=== PATIENT | female | born 1965 | race Caucasian/White ===

== ENCOUNTER 2018-09-03 16:42 | Inpatient (IN) ==
[2018-09-03] MEDS ORDERED: Clindamycin 900 mg/NS Premix 900 MG/50 ML PIGGYBACK IV.SIG ONE (17:48)
--- NOTE | 2018-09-03 17:52 | ED ---
HPI General Chief complaint: Skin/Abscess/Foreign Body Stated complaint: LEFT LEG WOUND, TREATED @MAIN Time Seen by Provider: 09/03/18 17:48 Source: patient Mode of arrival: ambulatory Limitations: no limitations History of Present Illness HPI narrative: 52-year-old female patient with history of chronic left leg wound that gets better and worse intermittently was seen 3 weeks ago and had been treated with p.o. antibiotics course, states that it had gotten better intermittently but she states it is getting worse again and the wound is getting larger again and she is worried that the wound infection is getting worse again. She states that the pain is going up her left leg. She denies any fevers, but has been nauseous, not feeling well, losing weight. She denies any diarrhea, vomiting, or other issues. Related Data Home Medications Medication Instructions Recorded Confirmed No Known Home Medications 09/03/18 09/03/18 Allergies Allergy/AdvReac Type Severity Reaction Status Date / Time No Known Allergies Allergy Verified 09/03/18 16:56 Review of Systems ROS: all other systems reviewed are negative PMFSH History History Provided By: Patient Medical History Medical History Wounds, multiple open, lower extremity (Acute) Surgical History Surgical History History of biopsy (Acute) History of eye surgery (Acute) History of removal of cyst (Acute) Social History Social History Substance History: No History of Abuse Second Hand Smoke Exposure: No Smoking Status: Never smoker How Often Do You Have a Drink Containing Alcohol: Monthly or less Recent Travel in [facility] within the Last 8 Weeks: No Recent Out of Country Travel within the Last 8 Weeks: No Exam Narrative Exam Narrative: GENERAL: Well-developed middle-age female patient currently in mild distress. Awake and oriented x3. SKIN: Focused skin assessment warm/dry. There is a large left lower leg wound that extends about 12 x 16 cm with large amount of wound eschar that is light colored. Foul-smelling, surrounded by erythema. HEAD: Atraumatic. Normocephalic. EYES: Pupils equal and round. No scleral icterus. No injection or drainage. ENT: No nasal bleeding or discharge. Mucous membranes pink and moist. NECK: Trachea midline. No JVD. CARDIOVASCULAR: Regular rate and rhythm. No murmur appreciated. RESPIRATORY: No accessory muscle use. Clear to auscultation. Breath sounds equal bilaterally. GASTROINTESTINAL: Abdomen soft, non-tender, nondistended. Hepatic and splenic margins not palpable. MUSCULOSKELETAL: No obvious deformities. No clubbing. No cyanosis. No edema. NEUROLOGICAL: Awake and alert. No obvious cranial nerve deficits. Motor grossly within normal limits. Normal speech. PSYCHIATRIC: Appropriate mood and affect; insight and judgment normal. Course Initial Documented Vital Signs Temperature 99.3 F 09/03/18 16:53 Pulse Rate 88 09/03/18 16:53 Respiratory Rate 16 09/03/18 16:53 Blood Pressure 143/69 H 09/03/18 16:53 Pulse Oximetry 100 09/03/18 16:53 Last Documented Vital Signs Temperature 99.3 F 09/03/18 16:53 Pulse Rate 89 09/03/18 17:59 Respiratory Rate 14 09/03/18 17:59 Blood Pressure 139/80 09/03/18 17:59 Pulse Oximetry 100 09/03/18 17:59 Medical Decision Making MDM Narrative Medical decision making narrative: The wound appears to be getting worse despite p.o. antibiotics as an outpatient. There is a lot of wound breakdown and it appears that she probably needs some debridement of this wound. IV antibiotics were initiated after blood cultures are drawn. Her lab work does show some leukocytosis as well. At this point, my plan would be to admit the patient for further treatment. Case is discussed with Dr. Cuevas for admission. Medical Screen Exam Complete: Yes Emergency Medical Condition: Yes Differential Diagnosis Differential Diagnosis: Chronic leg wound versus acute worsening of wound infection versus cellulitis versus sepsis versus osteomyelitis Lab Data Lab results reviewed: Yes I reviewed the patient's lab results. Result diagrams: 09/03/18 18:05 09/03/18 18:05 Lab Results 09/03/18 09/03/18 Range/Units 18:05 18:05 CBC w Diff Auto diff final WBC 11.2 H (4.0-11.0) th/mm3 RBC 3.84 L (4.00-5.30) mil/mm3 Hgb 12.2 (11.6-15.3) gm/dL Hct 36.6 (35.0-46.0) % MCV 95.3 (80.0-100.0) fL MCH 31.7 (27.0-34.0) pg MCHC 33.3 (32.0-36.0) % RDW 14.4 (11.6-17.2) % Plt Count 455 H (150-450) th/mm3 MPV 6.3 L (7.0-11.0) fL Neut % (Auto) 83.0 H (16.0-70.0) % Lymph % (Auto) 9.1 (9.0-44.0) % [place] % (Auto) 6.2 (0.0-8.0) % Eos % (Auto) 1.3 (0.0-4.0) % Baso % (Auto) 0.4 (0.0-2.0) % Neut # (Auto) 9.4 H (1.8-7.7) th/mm3 Lymph # (Auto) 1.0 (1.0-4.8) th/mm3 [place] # (Auto) 0.7 (0.0-0.9) th/mm3 Eos # (Auto) 0.1 (0.0-0.4) th/mm3 Baso # (Auto) 0.0 (0.0-0.2) th/mm3 WBC Differential . Differential Comment . Sodium 144 (136-145) meq/L Potassium 3.3 L (3.5-5.1) meq/L Chloride 108 H (98-107) meq/L Carbon Dioxide 26.7 (21.0-32.0) meq/L Anion Gap 9 (5-15) meq/L BUN 21 H (7-18) mg/dL Creatinine 0.73 (0.50-1.00) mg/dL Estimated GFR 83 L (>89) mL/min Random Glucose 142 H (74-106) mg/dL Calcium 8.7 (8.5-10.1) mg/dL Discharge Plan Discharge Disposition Patient Disposition: 30 Still Patient Discharge Condition Condition: Stable Discharge Details Anticipated Discharge Date: 09/03/18 Diagnosis: Wound infection Physicians Team ED Provider: Myles Lema Primary Care Provider: Primary Care Irene Rabago Rxs /Orders / Referrals /Forms Prescriptions: No Action No Known Home Medications RF: 0 Discharge Interventions Interventions: Vital Signs Last Done: 09/03/18 17:59 Status ED Status: With Doctor
[2018-09-03 18:27] LABS: Baso % (Auto) 0.4 % (0.0-2.0); Eos # (Auto) 0.1 th/mm3 (0.0-0.4); Eos % (Auto) 1.3 % (0.0-4.0); Hematocrit 36.6 % (35.0-46.0); Hemoglobin 12.2 gm/dL (11.6-15.3); Lymph % (Auto) 9.1 % (9.0-44.0); Mean Corpuscular HGB Conc 33.3 % (32.0-36.0); Mean Corpuscular Hemoglobin 31.7 pg (27.0-34.0); Mean Corpuscular Volume 95.3 fL (80.0-100.0); Mean Platelet Volume 6.3 fL (7.0-11.0); Mono # (Auto) 0.7 th/mm3 (0.0-0.9); Mono % (Auto) 6.2 % (0.0-8.0); Neut # (Auto) 9.4 th/mm3 (1.8-7.7); Platelet Count 455 th/mm3 (150-450); Red Blood Count 3.84 mil/mm3 (4.00-5.30); Red Cell Distribution Width 14.4 % (11.6-17.2); White Blood Count 11.2 th/mm3 (4.0-11.0)
[2018-09-03 18:38] LABS: Potassium 3.3 meq/L (3.5-5.1)
[2018-09-03 18:41] LABS: Calcium 8.7 mg/dL (8.5-10.1)
[2018-09-03 18:42] LABS: Carbon Dioxide 26.7 meq/L (21.0-32.0)
[2018-09-03] MEDS ORDERED: Bisacodyl 10 MG Supp RECTAL PRN (18:47)
[2018-09-03] MEDS ORDERED: Acetaminophen 325 MG Tablet PO PRN (18:47)
--- NOTE | 2018-09-03 19:04 | XR ---
EXAM DATE: 09/03/2018 6:59 PM EST AGE/SEX: 52 years / Female INDICATIONS: Patient has open sore to lower left tib/fib anteriorly and medially. CLINICAL DATA: This is the patient's initial encounter. Patient reports that signs and symptoms have been present for 3 weeks and indicates a pain score of 6/10. MEDICAL/SURGICAL HISTORY: None. None. COMPARISON: [facility] – [place], MR LOWER LEG LEFT W & W/O CONTRAST, 08/14/2018. . FINDINGS: There is soft tissue swelling and ulceration along the medial aspect of the lower leg corresponding t o the known open sore. The bone density is diminished. No fracture or dislocation. No underlying bone abnormality. CONCLUSION: Soft tissue ulceration and swelling as above. Electronically signed by: Ceferino Raya MD 09/03/2018 7:03 PM EST
[2018-09-03] MEDS: Ampicillin/Sulbactam Inj 3 GM in Sodium Chloride 0.9% Inj 100 ML IV.SIG SCH (19:24)
[2018-09-03] MEDS: Heparin - SQ 10,000 UNITS/ML Vial SQ SCH (19:24)
[2018-09-03] MEDS ORDERED: Ketorolac Inj 30 MG/ML (IVP) Vial IV.PUSH ONE (22:33)
[2018-09-04] MEDS: Ampicillin/Sulbactam Inj 3 GM in Sodium Chloride 0.9% Inj 100 ML IV.SIG SCH ×4 (02:32→21:57)
[2018-09-04] MEDS: Ketorolac Inj 30 MG/ML (IVP) Vial IV.PUSH PRN ×4 (04:56→22:49)
[2018-09-04] MEDS: Heparin - SQ 10,000 UNITS/ML Vial SQ SCH ×2 (07:56→21:57)
--- NOTE | 2018-09-04 08:02 | P.HPIM ---
History of Present Illness Primary Care Physician: No Primary Care Physician Chief Complaint: Right leg wound History of Present Illness: 52-year-old white female with a history of right leg wound which has worsened over the past 5 weeks. She was seen in the emergency room on August 14 and was given prescription for clindamycin which she stated she completed 5 days ago. While she was on this antibiotics, she noted the drainage has somewhat improved however since she has been off of the antibiotics she observed worsening of her right leg wound and increased drainage. She denies any fevers or chills. She denies any previous trauma to the area. She describes the drainage as yellowish in nature and states that it has been more malodorous recently. She denies any swelling of the lower legs. She denies any other associated symptoms. Diagnosis (1) Wound infection: Inpatient Certification Inpatient Certification: I certify that the inpatient services were ordered in accordance with Medicare regulations governing the order. This includes certification that hospital inpatient services are reasonable and necessary and in the case of services not specified as inpatient-only under 42 CFR 419.22(n), that they are appropriately provided as inpatient services in accordance to with the 2-midnight benchmark under 43 CFR 412.3(e) Estimated Total Length of Stay (Days): 3 Plans for Post Hospital Care: Home Review of Systems ROS: all other systems reviewed are negative PMFSH Medical History Medical History Wounds, multiple open, lower extremity (Acute) Surgical History Surgical History History of biopsy (Acute) History of eye surgery (Acute) History of removal of cyst (Acute) Family History Family History Mother Brain cancer Father Diabetes Social History Social History Substance History: No History of Abuse Second Hand Smoke Exposure: No Smoking Status: Never smoker How Often Do You Have a Drink Containing Alcohol: Never Recent Travel in [place] within the Last 8 Weeks: No Recent Out of Country Travel within the Last 8 Weeks: No Immunization History Tetanus Immunization: <5 Years Hx Influenza Vaccine This Season: No Medications and Allergies Allergies Allergy/AdvReac Type Severity Reaction Status Date / Time No Known Allergies Allergy Verified 09/03/18 16:56 Home Medications Medication Instructions Recorded Confirmed Type No Known Home Medications 09/03/18 09/03/18 History Active Medications: Active Medications Acetaminophen (Tylenol) 650 mg PO Q4H PRN PRN Reason: Headache, fever, pain 1-4 Last Admin: 09/03/18 20:09 Dose: 650 mg Al Hydroxide/Mg Hydroxide (Milk Of Magnesia Liq) 30 ml PO Q12H PRN PRN Reason: Mild Constipation Bisacodyl (Dulcolax Supp) 10 mg RECTAL DAILY PRN PRN Reason: SEVERE CONSITIPATION Heparin Sodium (Porcine) (Heparin Inj) 5,000 units SQ Q12H [facility] Last Admin: 09/03/18 19:24 Dose: 5,000 units Ampicillin Sodium/Sulbactam (Sodium 3 gm/ Sodium Chloride) 100 mls @ 200 mls/ hr IV.SIG Q6H [facility] Last Infusion: 09/04/18 03:05 Dose: Infused Ketorolac Tromethamine (Toradol Inj) 15 mg IV.PUSH Q6H PRN PRN Reason: pain 1 to 10 Stop: 09/09/18 01:44 Last Admin: 09/04/18 04:56 Dose: 15 mg Lactulose (Lactulose Liq) 30 ml PO DAILY PRN PRN Reason: SEVERE CONSITIPATION Ondansetron HCl (Zofran Inj) 4 mg IV.PUSH Q6H PRN PRN Reason: NAUSEA OR VOMITING Sennosides (Senokot) 17.2 mg PO Q12H PRN PRN Reason: Moderate Constipation Physical Exam Vital signs: Last Vital Signs Temp 96.5 F L 09/04/18 00:00 Pulse 89 09/04/18 00:00 Resp 18 09/04/18 00:00 BP 142/80 H 09/04/18 00:00 Pulse Ox 97 09/04/18 00:00 Intake & Output 09/02/18 09/03/18 09/04/18 09/05/18 06:59 06:59 06:59 06:59 Intake Total 550 / 550 Output Total 450 / 450 Balance 100 / 100 Weight 73.1 kg Narrative: GENERAL: Well-nourished pleasant female no acute distress SKIN: Venous stasis dermatitis changes bilateral lower extremity, right lower distal extremity showed a 10 cm x 11 cm excoriated wound with necrotic black tissue in the middle of the wound with surrounding area of yellowish fibrinous tissue, HEAD: Atraumatic. Normocephalic. EYES: Pupils equal and round. No scleral icterus. No injection or drainage. ENT: No nasal bleeding or discharge. Mucous membranes pink and moist. NECK: Trachea midline. No JVD. CARDIOVASCULAR: Regular rate and rhythm. RESPIRATORY: No accessory muscle use. Clear to auscultation. Breath sounds equal bilaterally. GASTROINTESTINAL: Abdomen soft, non-tender, nondistended. Hepatic and splenic margins not palpable. Normoactive bowel sounds MUSCULOSKELETAL: Extremities without clubbing, cyanosis, trace edema bilateral lower extremities NEUROLOGICAL: Awake and alert. No obvious cranial nerve deficits. Motor grossly within normal limits. Five out of 5 muscle strength in the arms and legs. Normal speech. PSYCHIATRIC: Appropriate mood and affect; insight and judgment normal. Assessment and Plan (1) Wound infection: Code(s): T14.8XXA - Other injury of unspecified body region, initial encounter; L08.9 - Local infection of the skin and subcutaneous tissue, unspecified Status: Acute Plan 52-year-old white female presents to the emergency room with worsening right lower leg wound over the past 5 weeks with failed outpatient antibiotic treatment Infected right lower leg wound -previous cultures done in the emergency room on August 14 showed Pseudomonas and Acinetobacterpatient has been placed on IV Unasyn overnight. Will add Levaquin to the regimen and follow-up with wound cultures and blood cultures. Santyl will be ordered for debridement with local wound care. Podiatry consultation will be placed for further evaluation for debridement this wound continue pain control with Tylenol and Toradol for breakthrough pain. Leukocytosis due to infectionwill monitor. DVT prophylaxisheparin H&P: Quality VTE Deep Vein Thrombosis/Pulmonary Embolism Present on Admission: No
[2018-09-04] MEDS: levoFLOXacin 500 MG Tablet PO SCH (11:54)
[2018-09-04] MEDS: Collagenase Oint 30 GM Tube TOPICAL SCH (14:20)
[2018-09-05] MEDS: Ampicillin/Sulbactam Inj 3 GM in Sodium Chloride 0.9% Inj 100 ML IV.SIG SCH ×4 (03:13→22:10)
[2018-09-05] MEDS: Ketorolac Inj 30 MG/ML (IVP) Vial IV.PUSH PRN ×2 (05:47→15:02)
[2018-09-05 06:21] LABS: Chloride 107 meq/L (98-107); Potassium 3.7 meq/L (3.5-5.1); Sodium 144 meq/L (136-145)
[2018-09-05 06:25] LABS: Calcium 8.1 mg/dL (8.5-10.1)
[2018-09-05 06:26] LABS: Anion Gap 7 meq/L (5-15); Blood Urea Nitrogen 15 mg/dL (7-18); Carbon Dioxide 29.9 meq/L (21.0-32.0); Glucose,Random 109 mg/dL (74-106)
[2018-09-05 06:29] LABS: Glomerular Filtration Rate Greater Than 89 mL/min (>89)
[2018-09-05 06:36] LABS: Baso % (Auto) 0.4 % (0.0-2.0); Eos # (Auto) 0.2 th/mm3 (0.0-0.4); Eos % (Auto) 3.4 % (0.0-4.0); Hematocrit 28.3 % (35.0-46.0); Lymph # (Auto) 1.1 th/mm3 (1.0-4.8); Lymph % (Auto) 18.8 % (9.0-44.0); Mean Corpuscular HGB Conc 35.2 % (32.0-36.0); Mean Corpuscular Hemoglobin 33.1 pg (27.0-34.0); Mean Corpuscular Volume 93.9 fL (80.0-100.0); Mono # (Auto) 0.7 th/mm3 (0.0-0.9); Neut % (Auto) 66.4 % (16.0-70.0); Red Blood Count 3.02 mil/mm3 (4.00-5.30); Red Cell Distribution Width 15.3 % (11.6-17.2)
[2018-09-05 06:38] LABS: Platelet Count 268 th/mm3 (150-450)
--- NOTE | 2018-09-05 08:49 | P.CONPOD ---
History of Present Illness Service: podiatry Consult date: 09/05/18 Reason for Consult: right leg wound Primary Care Provider: No Primary Care Physician Chief Complaint: Right leg wound History of Present Illness: Patient has history of bilateral leg swelling and wounds that recur. This time, it involves right leg only with large painful lesion which has worsened over the past 5 weeks. She was seen in the emergency room on August 14 and was given prescription for clindamycin which she stated she completed 5 days ago. While she was on this antibiotics, she noted the drainage has somewhat improved however since she has been off of the antibiotics she observed worsening of her right leg wound and increased drainage and pain. She denies any fevers or chills. She denies any previous trauma to the area. Review of Systems All other systems reviewed negative except as stated in HPI [facility] - History History Provided By: Patient - Medical History Medical History: Medical History (Last Reviewed 09/04/18 @ 08:04 by Pauly Jackson MD) Wounds, multiple open, lower extremity - Surgical History Surgical History: Surgical History (Last Reviewed 09/04/18 @ 08:04 by Pauly Jackson MD) History of biopsy History of eye surgery History of removal of cyst - Family History Family History: Family History Mother Brain cancer Father Diabetes - Tobacco History Second Hand Smoke Exposure: No Smoking Status: Never smoker - Alcohol History How Often Do You Have a Drink Containing Alcohol: Never - Substance Use History Substance History: No History of Abuse - Travel History Recent Travel in the [place] Within the Last 8 Weeks: No Recent Travel Out of the Country Within the Last 8 Weeks: No - Immunization History Tetanus Immunization: <5 Years Hx Influenza Vaccine This Season: No Medications and Allergies Active Medications: Active Medications Acetaminophen (Tylenol) 650 mg PO Q4H PRN PRN Reason: Headache, fever, pain 1-4 Last Admin: 09/03/18 20:09 Dose: 650 mg Al Hydroxide/Mg Hydroxide (Milk Of Magnesia Liq) 30 ml PO Q12H PRN PRN Reason: Mild Constipation Bisacodyl (Dulcolax Supp) 10 mg RECTAL DAILY PRN PRN Reason: SEVERE CONSITIPATION Collagenase (Santyl Oint) 1 applicatio TOPICAL DAILY [facility] Last Admin: 09/04/18 14:20 Dose: 1 applicatio Heparin Sodium (Porcine) (Heparin Inj) 5,000 units SQ Q12H [facility] Last Admin: 09/04/18 21:57 Dose: 5,000 units Ampicillin Sodium/Sulbactam (Sodium 3 gm/ Sodium Chloride) 100 mls @ 200 mls/ hr IV.SIG Q6H [facility] Last Infusion: 09/05/18 04:00 Dose: Infused Ketorolac Tromethamine (Toradol Inj) 15 mg IV.PUSH Q6H PRN PRN Reason: pain 1 to 10 Stop: 09/09/18 01:44 Last Admin: 09/05/18 05:47 Dose: 15 mg Lactulose (Lactulose Liq) 30 ml PO DAILY PRN PRN Reason: SEVERE CONSITIPATION Levofloxacin (Levaquin) 500 mg PO DAILY@1100 [facility] Last Admin: 09/04/18 11:54 Dose: 500 mg Ondansetron HCl (Zofran Inj) 4 mg IV.PUSH Q6H PRN PRN Reason: NAUSEA OR VOMITING Sennosides (Senokot) 17.2 mg PO Q12H PRN PRN Reason: Moderate Constipation Allergies Allergy/AdvReac Type Severity Reaction Status Date / Time No Known Allergies Allergy Verified 09/03/18 16:56 Home Medications Medication Instructions Recorded Confirmed Type No Known Home Medications 09/03/18 09/03/18 History Physical Exam Vital signs: Vital Signs 09/04/18 11:47 09/04/18 16:00 09/04/18 20:00 Temperature 99.9 F H 99.4 F 99.8 F H Pulse Rate 86 84 81 Respiratory Rate 18 18 18 Blood Pressure 155/81 H 154/74 H 123/62 Pulse Oximetry 98 98 95 09/05/18 00:00 Temperature 99.7 F H Pulse Rate 78 Respiratory Rate 18 Blood Pressure 130/72 Pulse Oximetry 98 Intake & Output 09/04/18 09/05/18 09/05/18 18:59 06:59 18:59 Intake Total 200 / 200 680 / 680 Balance 200 / 200 680 / 680 Intake: IV 200 / 200 200 / 200 Unasyn Inj 3 GM In NS Inj 100 200 / 200 200 / 200 ML @ 200 mls/hr IV.SIG Q6H [facility] Rx#:[id number] Oral 480 / 480 Other: # Voids 6 1 Date of Last Bowel Movement 09/03/18 09/03/18 # Bowel Movements 0 Narrative: Right anteromedial lower leg with large full-thickness wound approximately 8 x 4cm and 0.5cm deep. Fibronecrotic base with stable margins. No purulence. No erythema or ascending erythema noted. Very painful to palpation. Results - Labs CBC & Chem 7: 09/05/18 05:20 09/05/18 05:20 Laboratory Results - last 24 hr 09/05/18 09/05/18 05:20 05:20 CBC w Diff Auto diff final WBC 6.0 RBC 3.02 L Hgb 10.0 L D Hct 28.3 L MCV 93.9 MCH 33.1 MCHC 35.2 RDW 15.3 Plt Count 268 D MPV 7.0 Neut % (Auto) 66.4 Lymph % (Auto) 18.8 [place] % (Auto) 11.0 H Eos % (Auto) 3.4 Baso % (Auto) 0.4 Neut # (Auto) 4.0 Lymph # (Auto) 1.1 [place] # (Auto) 0.7 Eos # (Auto) 0.2 Baso # (Auto) 0.0 WBC Differential . Differential Comment . Sodium 144 Potassium 3.7 Chloride 107 Carbon Dioxide 29.9 Anion Gap 7 BUN 15 Creatinine 0.52 Estimated GFR Greater than 89 Random Glucose 109 H Calcium 8.1 L Microbiology 09/03/18 18:05 Wound - Leg Gram Stain - Final 09/03/18 18:05 Wound - Leg Wound Culture - Preliminary gram negative rods Group D Enterococcus 09/03/18 18:15 Blood - Peripheral Aerobic Blood Culture - Preliminary No growth in 1 day 09/03/18 18:15 Blood - Peripheral Anaerobic Blood Culture - Preliminary No growth in 1 day 09/03/18 18:05 Blood - Peripheral Aerobic Blood Culture - Preliminary No growth in 1 day 09/03/18 18:05 Blood - Peripheral Anaerobic Blood Culture - Preliminary No growth in 1 day Assessment and Plan - Assessment (1) Ulcer of left lower leg Code(s): L97.929 - Non-pressure chronic ulcer of unspecified part of left lower leg with unspecified severity Status: Acute Plan: NPO now To OR this afternoon for debridement Plan to apply compression bandage postoperatively, which can stay on for a week. When discharged, Patient would benefit from either one of the following two scenarios: 1) weekly follow up at wound care center or 2) with home health for NO ointment on the wound with nonadherent adaptic dressing over wound, followed by unna boot compression dressing to be applied on a weekly basis until wound has healed completely
--- NOTE | 2018-09-05 09:05 | P.PNIM ---
Subjective Interval history: Follow-up left lower extremity cellulitis and wound. Patient seen and examined , podiatry at bedside. Dressing removed and wound assessed. Partial debridement at bedside. Tolerated well. Plan will be to undergo a debridement this afternoon in OR. Discharge disposition to follow. Patient denies any acute complaints. Pain is well controlled on current med regimen. Vital signs stable. Afebrile. Physical Exam Vital signs: Vital Signs 09/04/18 11:47 09/04/18 16:00 09/04/18 20:00 Temperature 99.9 F H 99.4 F 99.8 F H Pulse Rate 86 84 81 Respiratory Rate 18 18 18 Blood Pressure 155/81 H 154/74 H 123/62 Pulse Oximetry 98 98 95 09/05/18 00:00 09/05/18 08:00 Temperature 99.7 F H 97.5 F L Pulse Rate 78 72 Respiratory Rate 18 19 Blood Pressure 130/72 148/84 H Pulse Oximetry 98 97 Intake & Output 09/04/18 09/05/18 09/05/18 18:59 06:59 18:59 Intake Total 200 / 200 680 / 680 0 / 0 Output Total 300 / 300 Balance 200 / 200 680 / 680 -300 / -300 Intake: IV 200 / 200 200 / 200 Unasyn Inj 3 GM In NS Inj 100 200 / 200 200 / 200 ML @ 200 mls/hr IV.SIG Q6H [facility] Rx#:[id number] Oral 480 / 480 0 / 0 Output: Urine 300 / 300 Other: # Voids 6 1 Date of Last Bowel Movement 09/03/18 09/03/18 # Bowel Movements 0 Narrative: GENERAL: Well-nourished pleasant female no acute distress SKIN: Venous stasis dermatitis changes bilateral lower extremity, Right anteromedial lower leg with large full-thickness wound approximately 8 x 4cm and 0.5cm deep. Fibronecrotic base with stable margins. No purulence. No erythema or ascending erythema noted. Very painful to palpation. HEAD: Atraumatic. Normocephalic. EYES: Pupils equal and round. No scleral icterus. No injection or drainage. ENT: No nasal bleeding or discharge. Mucous membranes pink and moist. NECK: Trachea midline. No JVD. CARDIOVASCULAR: Regular rate and rhythm. RESPIRATORY: No accessory muscle use. Clear to auscultation. Breath sounds equal bilaterally. GASTROINTESTINAL: Abdomen soft, non-tender, nondistended. Normoactive bowel sounds. MUSCULOSKELETAL: Extremities without clubbing, cyanosis, trace edema bilateral lower extremities NEUROLOGICAL: Awake and alert. No obvious cranial nerve deficits. Motor grossly within normal limits. Five out of 5 muscle strength in the arms and legs. Normal speech. PSYCHIATRIC: Appropriate mood and affect; insight and judgment normal. Results - Labs CBC & Chem 7: 09/05/18 05:20 09/05/18 05:20 Laboratory Results - last 24 hr 09/05/18 09/05/18 05:20 05:20 CBC w Diff Auto diff final WBC 6.0 RBC 3.02 L Hgb 10.0 L D Hct 28.3 L MCV 93.9 MCH 33.1 MCHC 35.2 RDW 15.3 Plt Count 268 D MPV 7.0 Neut % (Auto) 66.4 Lymph % (Auto) 18.8 [place] % (Auto) 11.0 H Eos % (Auto) 3.4 Baso % (Auto) 0.4 Neut # (Auto) 4.0 Lymph # (Auto) 1.1 [place] # (Auto) 0.7 Eos # (Auto) 0.2 Baso # (Auto) 0.0 WBC Differential . Differential Comment . Sodium 144 Potassium 3.7 Chloride 107 Carbon Dioxide 29.9 Anion Gap 7 BUN 15 Creatinine 0.52 Estimated GFR Greater than 89 Random Glucose 109 H Calcium 8.1 L Microbiology 09/03/18 18:05 Wound - Leg Gram Stain - Final 09/03/18 18:05 Wound - Leg Wound Culture - Preliminary gram negative rods Group D Enterococcus 09/03/18 18:15 Blood - Peripheral Aerobic Blood Culture - Preliminary No growth in 1 day 09/03/18 18:15 Blood - Peripheral Anaerobic Blood Culture - Preliminary No growth in 1 day 09/03/18 18:05 Blood - Peripheral Aerobic Blood Culture - Preliminary No growth in 1 day 09/03/18 18:05 Blood - Peripheral Anaerobic Blood Culture - Preliminary No growth in 1 day Assessment and Plan - Assessment (1) Wound infection Code(s): T14.8XXA - Other injury of unspecified body region, initial encounter; L08.9 - Local infection of the skin and subcutaneous tissue, unspecified Status: Acute - Plan 52-year-old white female presents to the emergency room with worsening right lower leg wound over the past 5 weeks with failed outpatient antibiotic treatment Infected right lower leg wound Leukocytosis, improved -Previous cultures done in the emergency room on August 14 showed Pseudomonas and Acinetobacterpatient has been placed on IV Unasyn overnight. -Levaquin added to the regimen. Continue. -Wound cultures showing group D enterococcus. Blood cultures negative to date. Continue to follow. -Santyl was ordered overnight, did assist with some debridement of the wound. -Podiatry following and dressing change today. Plan will be to go to the OR this afternoon for debridement. -Tylenol and Toradol for breakthrough pain. Patient has relief with current regimen. Will continue. -Further discharge disposition per podiatry recommendations. Low-grade fever overnight. Leukocytosis improved. Continue to monitor. DVT prophylaxis: Heparin. Discharge Planning: Awaiting surgical debridement of wound today in OR. Likely discharge tomorrow.
[2018-09-05] MEDS: Heparin - SQ 10,000 UNITS/ML Vial SQ SCH (09:10)
[2018-09-05] MEDS: Collagenase Oint 30 GM Tube TOPICAL SCH (09:11)
[2018-09-05] MEDS: levoFLOXacin 500 MG Tablet PO SCH (10:43)
--- NOTE | 2018-09-05 12:46 | P.PNWCN ---
Wound Care Nurse Consult Description: Consult for wound management of leg wound per Dr Cuevas Recommendation: Refer to Dr Reed post op dressing change orders. Additional information: Patient not seen for wound evaluation due to Podiatry consult for same wound.
[2018-09-05] MEDS ORDERED: Sugammadex Inj 200 MG/2 ML Vial IV.PUSH ONE (16:27)
[2018-09-05] MEDS ORDERED: fentaNYL Citrate Inj 100 MCG/2 ML Ampul ONE (16:27)
[2018-09-05] MEDS ORDERED: Metoprolol Tartrate 25 MG Tablet PO ONE (16:48)
[2018-09-05] MEDS ORDERED: Chlorhexidine Gluconate 2% 1 Pack (2 Cloths) TOPICAL ONE (16:48)
[2018-09-05] MEDS ORDERED: Bupivacaine PF 0.25% Inj 30 ML Vial ONE (16:51)
[2018-09-05] MEDS ORDERED: Famotidine PF Inj 20 MG/2 ML Vial ONE (16:53)
[2018-09-05] MEDS ORDERED: Sodium Chlor 0.9% Inj 500 ML IV.SIG SCH (17:00)
[2018-09-05] MEDS ORDERED: Bupivacaine/Epinephrine Inj 0.25% 50 ML Vial ONE (17:06)
--- NOTE | 2018-09-05 17:19 | P.BOP ---
- Preoperative Diagnosis (1) Ulcer of left lower leg - Postoperative Diagnosis (1) Ulcer of left lower leg Date of procedure: 09/05/18 Procedure: 1. Irrigation and debridement of ulcer left lower leg Local anesthesia with 20mL % marcaine with epi. Culture taken of wound bed. Excisional debridement of necrotic subcutaneous tissue and fascia down to level of muscle and fascia performed with #15 blade, rongeur, and curette, followed by irrigation with L normal saline A small approximately 3mm diameter punch biopsy of medial distal aspect of lesion sent to pathology. Measurements: Medial wound is 11.5 cm x 8 cm x 0.4cm depth. Lateral wound is 2cm x 2cm x 0.4cm depth. Dressing with xeroform, 4x4, abd, cast padding toes to knee and steven toes to knee applied left lower extremity. No tourniquet utilized. No complications. DISPOSITION: Weightbearing as tolerated left lower extremity in surgical shoe. Needs weekly unna boot or compression dressings applied upon discharge. Await cultures. No further treatment planned. Clear for discharge from podiatry when wound care outpatient set up and cultures are resulted. Anesthesia: MAC, local Surgeon: Lashae Reed DPM Civil Service Clerk: staff Estimated blood loss (mL): 10 Pathology: other (1. culture left leg 2. biopsy of lesion left leg) Condition: stable Disposition: PACU
[2018-09-05] MEDS ORDERED: Lidocaine PF 1% Inj 5 ML Syringe OTHER ONE (17:29)
[2018-09-05] MEDS ORDERED: Morphine Inj 4 MG/ML Vial ONE ×2 (17:59→18:07)
[2018-09-06] MEDS: Ampicillin/Sulbactam Inj 3 GM in Sodium Chloride 0.9% Inj 100 ML IV.SIG SCH ×4 (04:06→21:57)
[2018-09-06] MEDS: Ketorolac Inj 30 MG/ML (IVP) Vial IV.PUSH PRN ×3 (05:17→18:33)
--- NOTE | 2018-09-06 11:06 | P.PNIM ---
Subjective Interval history: 52-year-old female who was examined today for left lower extremity wound. Patient is laying in bed comfortable. Leg is wrapped. Patient denied indicate that she is in any pain. Had a long discussion with the patient about antibiotic treatment, outpatient management with wound care. Living arrangements where she lives upstairs which is difficult for her to ambulate. Vital signs are stable. Patient remains afebrile. Physical Exam Vital signs: Vital Signs 09/05/18 12:00 09/05/18 16:00 09/05/18 18:02 Temperature 98.1 F 98.4 F 98.2 F Pulse Rate 71 89 90 Respiratory Rate 19 21 16 Blood Pressure 143/69 H 142/95 H 145/86 H Pulse Oximetry 95 98 99 09/05/18 18:21 09/05/18 18:45 09/05/18 20:00 Temperature 98 F Pulse Rate 74 75 Respiratory Rate 16 16 17 Blood Pressure 157/83 H 162/85 H Pulse Oximetry 97 96 09/05/18 22:00 09/06/18 00:00 09/06/18 04:00 Temperature 97.1 F L 96.9 F L 97.7 F Pulse Rate 81 83 65 Respiratory Rate 20 20 20 Blood Pressure 195/98 H 126/73 112/59 L Pulse Oximetry 98 97 97 Intake & Output 09/05/18 09/06/18 09/06/18 18:59 06:59 18:59 Intake Total 2570 / 2570 550 / 550 100 / 100 Output Total 600 / 600 Balance 1969 / 1969 550 / 550 100 / 100 Weight 73 kg Intake: IV 850 / 850 550 / 550 100 / 100 Unasyn Inj 3 GM In NS Inj 100 200 / 200 200 / 200 100 / 100 ML @ 200 mls/hr IV.SIG Q6H [facility] Rx#:[id number] LR 1000 mL Inj 1,000 ML @ 30 650 / 650 350 / 350 mls/hr IV.SIG .Q24H SOLANGE Rx#: [id number] Oral 820 / 820 Anesthesia Amount 800 / 800 Other 100 / 100 Output: Urine 600 / 600 Other: Date of Last Bowel Movement 09/03/18 Narrative: GENERAL: Well-developed, well-nourished, in no acute distress. alert and orientated HEENT: Head is normocephalic without any lesions or masses noted. Facial features are symmetric. Eyes: Extraocular muscles are intact. Conjunctivae were clear. NECK: Supple without any masses. Trachea midline no deviation. No JVD, CARDIAC: Regular rhythm, regular rate. S1/S2 are heard. No murmurs gallops or rubs. LUNGS: Clear to auscultation bilaterally. No wheeze, rhonchi or rales. No use of accessory muscles on inspiration or expiration. ABDOMEN: Soft, nontender. Nondistended. Bowel sounds heard in all 4 quadrants. No organomegaly or masses. Negative rebound, negative guarding EXTREMITIES: No edema, pulses are equal bilaterally. No cyanosis or clubbing NEUROLOGY: Mood and affect appear appropriate. Cranial nerves II through XII grossly intact. Moving all extremities, speech is clear Results - Labs CBC & Chem 7: 09/05/18 05:20 09/05/18 05:20 Microbiology 09/03/18 18:15 Blood - Peripheral Aerobic Blood Culture - Preliminary No growth in 2 days 09/03/18 18:15 Blood - Peripheral Anaerobic Blood Culture - Preliminary No growth in 2 days 09/03/18 18:05 Blood - Peripheral Aerobic Blood Culture - Preliminary No growth in 2 days 09/03/18 18:05 Blood - Peripheral Anaerobic Blood Culture - Preliminary No growth in 2 days 09/03/18 18:05 Wound - Leg Gram Stain - Final 09/03/18 18:05 Wound - Leg Wound Culture - Final Group D Enterococcus - Procedures Date of procedure: 09/05/18 1. Irrigation and debridement of ulcer left lower leg Assessment and Plan - Assessment (1) Wound infection Code(s): T14.8XXA - Other injury of unspecified body region, initial encounter; L08.9 - Local infection of the skin and subcutaneous tissue, unspecified Status: Acute - Plan Infected left lower leg wound -Patient has been treated previously 1 month ago for his same wound which did not get any better. At that time culture was taken and showed Pseudomonas and Acinetobacter. Patient was discharged from the ER at that time with clindamycin -Wound culture from this hospitalization indicating group D enterococcus -Patient continued on Unasyn and Levaquin -Podiatry consulted and performed incision and debridement of the wound on , indicating stable for discharge from podiatry perspective the patient can be set up with outpatient wound care -Wound care nurse following the patient -Case management consulted and has arranged outpatient wound care to be done at [facility] -Patient continued on Tylenol and Toradol for pain control -Given that the patient has had a couple cultures performed with multiple and different organisms identified. Will need to wait for the deep tissue culture for definitive treatment with antibiotics Elevated blood pressure -Could be secondary to stress -Start Norvasc 5 mg daily -Clonidine as needed DVT prevention -Subcutaneous heparin Discharge Planning: Discharge planning with outpatient wound care once deep tissue cultures are final
[2018-09-06] MEDS: Collagenase Oint 30 GM Tube TOPICAL SCH (12:17)
[2018-09-06] MEDS: amLODIPine 5 MG Tablet PO SCH (12:24)
[2018-09-06] MEDS: levoFLOXacin 500 MG Tablet PO SCH (12:24)
[2018-09-07] MEDS: Ketorolac Inj 30 MG/ML (IVP) Vial IV.PUSH PRN ×4 (01:35→23:31)
[2018-09-07] MEDS: Ampicillin/Sulbactam Inj 3 GM in Sodium Chloride 0.9% Inj 100 ML IV.SIG SCH ×4 (01:36→20:45)
[2018-09-07] MEDS ORDERED: Morphine Sulfate Inj 2 MG/ML Vial IV.PUSH ONE (02:33)
[2018-09-07] MEDS: amLODIPine 5 MG Tablet PO SCH (08:12)
[2018-09-07] MEDS: Collagenase Oint 30 GM Tube TOPICAL SCH (08:13)
--- NOTE | 2018-09-07 09:56 | P.PNIM ---
Subjective Interval history: 52-year-old female who is seen and examined today for follow-up on left lower extremity wound. Patient is doing well. States that pain got clinically worse last evening. Patient was given morphine with minimal relief. Patient remains afebrile. Physical Exam Vital signs: Vital Signs 09/06/18 11:05 09/06/18 12:00 09/06/18 16:00 Temperature 98.0 F 97.5 F L Pulse Rate 76 79 Respiratory Rate 17 22 17 Blood Pressure 108/66 130/75 Pulse Oximetry 97 96 09/06/18 17:39 09/06/18 20:00 09/07/18 00:00 Temperature 98.6 F 97.7 F Pulse Rate 77 83 Respiratory Rate 16 20 20 Blood Pressure 107/57 L 129/71 Pulse Oximetry 94 L 96 09/07/18 08:00 09/07/18 09:42 Temperature Pulse Rate 78 Respiratory Rate 20 16 Blood Pressure 156/81 H Pulse Oximetry 99 Intake & Output 09/06/18 09/07/18 09/07/18 18:59 06:59 18:59 Intake Total 920 / 920 920 / 920 340 / 340 Output Total 200 / 200 Balance 920 / 920 920 / 920 140 / 140 Weight 73.1 kg Intake: IV 200 / 200 200 / 200 100 / 100 Unasyn Inj 3 GM In NS Inj 100 200 / 200 200 / 200 100 / 100 ML @ 200 mls/hr IV.SIG Q6H SOLANGE Rx#:[id number] Oral 720 / 720 720 / 720 240 / 240 Output: Urine 200 / 200 Other: # Voids 2 2 Date of Last Bowel Movement 09/03/18 # Bowel Movements 0 Narrative: GENERAL: Well-developed, well-nourished, in no acute distress. alert and orientated HEENT: Head is normocephalic without any lesions or masses noted. Facial features are symmetric. Eyes: Extraocular muscles are intact. Conjunctivae were clear. NECK: Supple without any masses. Trachea midline no deviation. No JVD, CARDIAC: Regular rhythm, regular rate. S1/S2 are heard. No murmurs gallops or rubs. LUNGS: Clear to auscultation bilaterally. No wheeze, rhonchi or rales. No use of accessory muscles on inspiration or expiration. ABDOMEN: Soft, nontender. Nondistended. Bowel sounds heard in all 4 quadrants. No organomegaly or masses. Negative rebound, negative guarding EXTREMITIES: No edema, pulses are equal bilaterally. No cyanosis or clubbing NEUROLOGY: Mood and affect appear appropriate. Cranial nerves II through XII grossly intact. Moving all extremities, speech is clear LEFT LOWER EXTREMITY: Patient's leg is wrapped at this time. Neurologically and vascularly intact Results - Labs CBC & Chem 7: 09/05/18 05:20 09/05/18 05:20 Microbiology 09/05/18 11:30 Abscess - Leg Gram Stain - Final 09/05/18 11:30 Abscess - Leg Wound Culture - Preliminary No growth. 09/03/18 18:15 Blood - Peripheral Aerobic Blood Culture - Preliminary No growth in 3 days 09/03/18 18:15 Blood - Peripheral Anaerobic Blood Culture - Preliminary No growth in 3 days 09/03/18 18:05 Blood - Peripheral Aerobic Blood Culture - Preliminary No growth in 3 days 09/03/18 18:05 Blood - Peripheral Anaerobic Blood Culture - Preliminary No growth in 3 days - Procedures Date of procedure: 09/05/18 1. Irrigation and debridement of ulcer left lower leg Assessment and Plan - Assessment (1) Wound infection Code(s): T14.8XXA - Other injury of unspecified body region, initial encounter; L08.9 - Local infection of the skin and subcutaneous tissue, unspecified Status: Acute - Plan Infected left lower leg wound -Patient has been treated previously 1 month ago for his same wound which did not get any better. At that time culture was taken and showed Pseudomonas and Acinetobacter. Patient was discharged from the ER at that time with clindamycin -Wound culture from this hospitalization indicating group D enterococcus -Patient continued on Unasyn and Levaquin -Podiatry consulted and performed incision and debridement of the wound on , indicating stable for discharge from podiatry perspective the patient can be set up with outpatient wound care -Wound care nurse following the patient -Case management consulted and has arranged outpatient wound care to be done at [facility] -Pain medication adjusted to Lortab and Toradol for breakthrough -Given that the patient has had a couple cultures performed with multiple and different organisms identified. Will need to wait for the deep tissue culture for definitive treatment with antibiotics -[employer] consulted for Unna boot, postop boot Elevated blood pressure -Could be secondary to stress -Continue Norvasc 5 mg daily -Clonidine as needed DVT prevention -Subcutaneous heparin Discharge Planning: Discharge planning with outpatient wound care once deep tissue cultures are final
[2018-09-07] MEDS: levoFLOXacin 500 MG Tablet PO SCH (12:19)
[2018-09-08] MEDS: Ampicillin/Sulbactam Inj 3 GM in Sodium Chloride 0.9% Inj 100 ML IV.SIG SCH ×4 (02:07→20:38)
[2018-09-08] MEDS: Ketorolac Inj 30 MG/ML (IVP) Vial IV.PUSH PRN ×3 (05:15→21:41)
[2018-09-08] MEDS: amLODIPine 5 MG Tablet PO SCH (08:35)
[2018-09-08] MEDS: Collagenase Oint 30 GM Tube TOPICAL SCH (10:07)
[2018-09-08] MEDS: levoFLOXacin 500 MG Tablet PO SCH (10:36)
--- NOTE | 2018-09-08 10:50 | P.PNIM ---
Subjective Interval history: Echocardiogram today for follow-up on right cellulitis wound. Patient resting comfortably. Denies any new complaints. Awaiting final microbiology report for discharge determination. Vital signs are stable. Patient remains afebrile. Physical Exam Vital signs: Vital Signs 09/07/18 12:00 09/07/18 16:00 09/07/18 17:48 Temperature 97.8 F 97.6 F Pulse Rate 76 82 Respiratory Rate 21 19 18 Blood Pressure 110/62 127/72 Pulse Oximetry 97 99 09/07/18 20:00 09/08/18 00:00 09/08/18 08:00 Temperature 97.8 F 97.8 F 97.0 F L Pulse Rate 82 86 74 Respiratory Rate 20 20 20 Blood Pressure 137/69 143/75 H 141/82 H Pulse Oximetry 96 98 96 09/08/18 08:35 Temperature Pulse Rate Respiratory Rate 18 Blood Pressure Pulse Oximetry Intake & Output 09/07/18 09/08/18 09/08/18 18:59 06:59 18:59 Intake Total 1280 / 1280 440 / 440 460 / 460 Output Total 901 / 901 200 / 200 Balance 379 / 379 440 / 440 260 / 260 Weight 73.4 kg Intake: IV 200 / 200 200 / 200 100 / 100 Unasyn Inj 3 GM In NS Inj 100 200 / 200 200 / 200 100 / 100 ML @ 200 mls/hr IV.SIG Q6H SOL[facility] Rx#:[id number] Oral 1080 / 1080 240 / 240 360 / 360 Output: Urine 900 / 900 200 / 200 Stool / Other: # Voids 5 Date of Last Bowel Movement 09/07/18 09/07/18 Narrative: GENERAL: Well-developed, well-nourished, in no acute distress. alert and orientated HEENT: Head is normocephalic without any lesions or masses noted. Facial features are symmetric. Eyes: Extraocular muscles are intact. Conjunctivae were clear. NECK: Supple without any masses. Trachea midline no deviation. No JVD, CARDIAC: Regular rhythm, regular rate. S1/S2 are heard. No murmurs gallops or rubs. LUNGS: Clear to auscultation bilaterally. No wheeze, rhonchi or rales. No use of accessory muscles on inspiration or expiration. ABDOMEN: Soft, nontender. Nondistended. Bowel sounds heard in all 4 quadrants. No organomegaly or masses. Negative rebound, negative guarding EXTREMITIES: No edema, pulses are equal bilaterally. No cyanosis or clubbing NEUROLOGY: Mood and affect appear appropriate. Cranial nerves II through XII grossly intact. Moving all extremities, speech is clear LEFT LOWER EXTREMITY: Patient's leg is wrapped at this time. Neurologically and vascularly intact Results - Labs CBC & Chem 7: 09/05/18 05:20 09/05/18 05:20 Microbiology 09/05/18 11:30 Abscess - Leg Gram Stain - Final 09/05/18 11:30 Abscess - Leg Wound Culture - Preliminary gram negative rods 09/03/18 18:15 Blood - Peripheral Aerobic Blood Culture - Preliminary No growth in 4 days 09/03/18 18:15 Blood - Peripheral Anaerobic Blood Culture - Preliminary No growth in 4 days 09/03/18 18:05 Blood - Peripheral Aerobic Blood Culture - Preliminary No growth in 4 days 09/03/18 18:05 Blood - Peripheral Anaerobic Blood Culture - Preliminary No growth in 4 days - Procedures Date of procedure: 09/05/18 1. Irrigation and debridement of ulcer left lower leg Assessment and Plan - Assessment (1) Wound infection Code(s): T14.8XXA - Other injury of unspecified body region, initial encounter; L08.9 - Local infection of the skin and subcutaneous tissue, unspecified Status: Acute - Plan Infected left lower leg wound -Patient has been treated previously 1 month ago for his same wound which did not get any better. At that time culture was taken and showed Pseudomonas and Acinetobacter. Patient was discharged from the ER at that time with clindamycin -Wound culture from this hospitalization indicating group D enterococcus -Patient continued on Unasyn and Levaquin -Podiatry consulted and performed incision and debridement of the wound on , indicating stable for discharge from podiatry perspective the patient can be set up with outpatient wound care -Wound care nurse following the patient -Case management consulted and has arranged outpatient wound care to be done at [facility] -Pain medication adjusted to Lortab and Toradol for breakthrough, with improved pain control -Given that the patient has had a couple cultures performed with multiple and different organisms identified. Will need to wait for the deep tissue culture for definitive treatment with antibiotics -[employer] consulted for Unna boot, postop boot Elevated blood pressure, improved -Could be secondary to stress -Continue Norvasc 5 mg daily -Clonidine as needed DVT prevention -Subcutaneous heparin Discharge Planning: Discharge planning with outpatient wound care once deep tissue cultures are final
[2018-09-09] MEDS: Ampicillin/Sulbactam Inj 3 GM in Sodium Chloride 0.9% Inj 100 ML IV.SIG SCH ×2 (01:53→08:27)
[2018-09-09] MEDS: amLODIPine 5 MG Tablet PO SCH (08:28)
[2018-09-09 09:18] VITALS: O2SAT 100
[2018-09-09] MEDS: Collagenase Oint 30 GM Tube TOPICAL SCH (10:43)
--- NOTE | 2018-09-09 11:02 | P.DS ---
Date of admission: 09/03/18 18:48 Primary care physician: No Primary Care Physician Attending physician on discharge: Mimi Cuevas Anticipated date of discharge: 09/09/18 Brief History from admission: 52-year-old white female with a history of right leg wound which has worsened over the past 5 weeks. She was seen in the emergency room on August 14 and was given prescription for clindamycin which she stated she completed 5 days ago. While she was on this antibiotics, she noted the drainage has somewhat improved however since she has been off of the antibiotics she observed worsening of her right leg wound and increased drainage. She denies any fevers or chills. She denies any previous trauma to the area. She describes the drainage as yellowish in nature and states that it has been more malodorous recently. She denies any swelling of the lower legs. She denies any other associated symptoms. DS: Diagnosis - Discharge Diagnosis (1) Wound infection Status: Acute DS: Medications - Discharge Medications Prescriptions: hydrocodone-acetaminophen 1 tab PO Q6H PRN #12 tab PRN Reason: Acute Pain sulfamethoxazole-trimethoprim [Bactrim DS] 1 tab PO BID #28 tab DS: Summary Hospital Course: 52-year-old female who originally presented to the emergency department because of a worsening leg wound for 5 weeks. Patient was recently seen in the emergency department August 14 was given a prescription for clindamycin. Completed the prescription and the leg was not get any better so she came back to the hospital for evaluation. The patient was subsequently admitted the hospital for failing outpatient antibiotic treatment. The patient was admitted with Levaquin and Unasyn for antibiotic coverage. Patient did have previous culture performed which did indicate Pseudomonas and Acinetobacter infection. Repeat culture did show group D enterococcus. Podiatry was consulted who did take the patient for irrigation debridement and recommended that the patient be discharged once cleared by medical team with Unna boot, wound care arrangements. Case management evaluated the patient and has made an appointment for her to follow-up with wound care upon discharge. Patient did have a deep wound culture performed which did grow gram-negative anny. Discussion with microbiology on multiple occasions was able to obtain sensitivities for appropriate antibiotics. Patient is clinically stable. Have been waiting the last 3 days for final cultures for discharge planning. Case management will be consulted to arrange appropriate discharge DME supplies. Mandatory referral has been requested for follow-up with needle straightener. Patient was instructed to follow-up with her primary medical doctor. Patient is to keep the appointment with [facility] for continued care. Patient be continued on 2 weeks of oral antibiotics that is sensitive to the cultures. Patient be discharged home once all arrangements have been made. - Time Spent with Patient Total time spent providing and/or coordinating discharge services: Greater than 30 minutes - Quality: VTE Deep Vein Thrombosis/Pulmonary Embolism Present on Admission: No Exam Vital signs: Vital Signs 09/08/18 12:00 09/08/18 14:25 09/08/18 14:56 Temperature 98.2 F Pulse Rate 77 Respiratory Rate 21 16 16 Blood Pressure 113/56 L Pulse Oximetry 97 09/08/18 16:00 09/08/18 16:55 09/08/18 20:00 Temperature 98.4 F 98.2 F Pulse Rate 75 72 Respiratory Rate 20 16 18 Blood Pressure 130/70 127/68 Pulse Oximetry 96 94 L 09/09/18 00:00 09/09/18 08:00 09/09/18 08:28 Temperature 96.5 F L 96.1 F L Pulse Rate 88 79 Respiratory Rate 18 17 20 Blood Pressure 136/72 153/74 H Pulse Oximetry 96 100 09/09/18 10:41 Temperature Pulse Rate Respiratory Rate 20 Blood Pressure Pulse Oximetry Intake & Output 09/08/18 09/09/18 09/09/18 18:59 06:59 18:59 Intake Total 1280 / 1280 450 / 450 100 / 100 Output Total 600 / 600 600 / 600 Balance 680 / 680 -150 / -150 100 / 100 Weight 59.7 kg Intake: IV 200 / 200 200 / 200 100 / 100 Unasyn Inj 3 GM In NS Inj 100 200 / 200 200 / 200 100 / 100 ML @ 200 mls/hr IV.SIG Q6H [facility] Rx#:[id number] Oral 1080 / 1080 250 / 250 Output: Urine 600 / 600 600 / 600 Other: # Voids 2 Date of Last Bowel Movement 09/07/18 09/07/18 Narrative: GENERAL: Well-developed, well-nourished, in no acute distress. alert and orientated HEENT: Head is normocephalic without any lesions or masses noted. Facial features are symmetric. Eyes: Extraocular muscles are intact. Conjunctivae were clear. NECK: Supple without any masses. Trachea midline no deviation. No JVD, CARDIAC: Regular rhythm, regular rate. S1/S2 are heard. No murmurs gallops or rubs. LUNGS: Clear to auscultation bilaterally. No wheeze, rhonchi or rales. No use of accessory muscles on inspiration or expiration. ABDOMEN: Soft, nontender. Nondistended. Bowel sounds heard in all 4 quadrants. No organomegaly or masses. Negative rebound, negative guarding EXTREMITIES: No edema, pulses are equal bilaterally. No cyanosis or clubbing NEUROLOGY: Mood and affect appear appropriate. Cranial nerves II through XII grossly intact. Moving all extremities, speech is clear LEFT LOWER EXTREMITY: Patient's leg is wrapped at this time. Neurologically and vascularly intact Results Procedures completed during hospitalization: Date of procedure: 09/05/18 1. Irrigation and debridement of ulcer left lower leg Pending studies at discharge: Pending at discharge 09/05/18 07:45 Surgical [PTH] Routine Labs on day of discharge: Preliminary micro results at discharge 09/05/18 11:30 Wound Culture - Preliminary Abscess - Leg gram negative rods - Impressions ITS Impressions Tibia/Fibula X-Ray 09/03/18 18:33 CONCLUSION: Soft tissue ulceration and swelling as above. Discharge Plan - Discharge Disposition Patient Disposition: Discharge Home - Discharge Condition Condition: Stable - Discharge Order Discharge Orders: Discharge Order (Routine); Ordered 09/09/18 Ordered By: Young Zhang - Discharge Details Anticipated Discharge Date: 09/09/18 Discharge Comment: Okay to discharge home once Unna boot applied, arrangements made by case management for any home needs. - Physicians Team Primary Care Provider: Primary Care Physici,Irene Attending Provider: Mimi Cuevas Other Providers: Lashae Reed DPM
[2018-09-09 12:33] VITALS: BP 142/76; PULSE 84; RESP 17; TEMP 96.8
--- NOTE | 2018-09-11 19:02 | MP ---
cc: Lashae Reed DPCj DATE OF OPERATION: 09/05/2018 INDICATION: The patient presented initially with a large ulceration to the left lower leg that was noted to have significant necrotic and fibrotic tissue with localized erythema to the area. The chronic lesion continued to get infected repetitively. I discussed with the patient that instead of undergoing painful debridement bedside that was not going to be complete and remove all of the tissue, I suggested she undergo irrigation and debridement of the ulcer of the left lower leg under anesthesia in the operating room in order to do a more completing job so she can get to healing faster and better. She agreed to move forward with surgery. DESCRIPTION OF PROCEDURE: She was seen in preop holding by myself, nursing staff and anesthesia, where the correct patient, side, and site were all confirmed to be correct and the left lower leg. She was then taken to the surgical suite in supine position. The left leg was prepped and draped in normal sterile fashion. After timeouts were performed per facility protocol, attention was directed to that left lesion where 20 mL of 0.25% Marcaine plain with epinephrine was utilized in order to achieve hemostasis and local anesthesia. Excisional debridement was performed of the necrotic subcutaneous tissue and fascia down to the level of muscle and fascia, which was performed with a #15 blade rongeur and curette down to the level of muscle and fascia again, followed by irrigation and a culture was taken of the wound bed. Irrigation was performed with a liter of normal saline, followed by a small area from the distal medial aspect of the lesion was sent to pathology, a 3 mm diameter punch biopsy in order to find out more characteristics of the wound. The measurements of the medial wound were approximately 11.5 x 8 cm x 0.4 cm in depth, and there was a lateral wound also noted that was 2 cm in diameter and 0.4 cm in depth. After debridement, a dressing consisting of Xeroform, 4 x 4's, ABD, cast padding was applied from the toes up to the knee with Wei bandage compression from the toes to the knee to the left lower extremity. The patient tolerated the procedure and anesthesia well without complications and was taken back to the PACU with vital signs stable and vascular status intact to the left lower extremity. She will be weightbearing as tolerated in a surgical shoe and will need weekly Unna compression bandages upon discharge. SHORT OPERATIVE NOTE SURGEON: Lashae Reed DPM [employer] REFINING FIRER: Staff. PREOPERATIVE DIAGNOSIS: Ulcer, left lower leg. POSTOPERATIVE DIAGNOSIS: Ulcer, left lower leg. PROCEDURE PERFORMED: Irrigation and debridement of ulcer, left lower leg. SPECIMENS: 1. Culture, left leg. 2. Biopsy of lesion, left leg. ANESTHESIA: MAC plus local consisting of 20 mL of 0.25% Marcaine plain with epinephrine. ESTIMATED BLOOD LOSS: 10 mL. HEMOSTASIS: No tourniquet utilized. COMPLICATIONS: None. CONDITION: Stable to PACU. DISPOSITION: Weightbearing as tolerated. Will need compression upon discharge. Podiatry okay with discharge anytime after surgery. BRANDY Fortune/екатерина , 05:21 PM , 05:29 PM
== END 2018-09-09 15:59 | disposition home or self-care (01) ==
LOC: PHED 16:42 → PHEDA 18:48 → PH3 21:21
PROVIDERS: ADMIT Hospitalist; ATTEND Hospitalist
DX: L03.116 Cellulitis of left lower limb; R03.0 Elevated blood-pressure reading, without diagnosis of hypertension; S81.802D Unspecified open wound, left lower leg, subsequent encounter; L97.929 Non-pressure chronic ulcer of unspecified part of left lower leg with unspecified severity; Z80.8 Family history of malignant neoplasm of other organs or systems; Z83.3 Family history of diabetes mellitus; I87.8 Other specified disorders of veins

== ENCOUNTER 2018-10-29 15:35 | Inpatient (IN) ==
[2018-10-29 16:42] LABS: Baso % (Auto) 0.8 % (0.0-2.0); Eos # (Auto) 0.3 th/mm3 (0.0-0.4); Eos % (Auto) 5.7 % (0.0-4.0); Hematocrit 36.4 % (35.0-46.0); Hemoglobin 12.2 gm/dL (11.6-15.3); Lymph # (Auto) 0.6 th/mm3 (1.0-4.8); Lymph % (Auto) 9.7 % (9.0-44.0); Mean Corpuscular HGB Conc 33.5 % (32.0-36.0); Mean Corpuscular Volume 98.4 fL (80.0-100.0); Mean Platelet Volume 6.9 fL (7.0-11.0); Mono # (Auto) 0.4 th/mm3 (0.0-0.9); Neut # (Auto) 4.4 th/mm3 (1.8-7.7); Neut % (Auto) 76.8 % (16.0-70.0); Platelet Count 319 th/mm3 (150-450); White Blood Count 5.7 th/mm3 (4.0-11.0)
[2018-10-29 17:00] LABS: Anion Gap 5 meq/L (5-15); Blood Urea Nitrogen 18 mg/dL (7-18); C-Reactive Protein 2.68 mg/dL (0.00-0.30); Calcium 8.3 mg/dL (8.5-10.1); Carbon Dioxide 28.9 meq/L (21.0-32.0); Chloride 109 meq/L (98-107); Glomerular Filtration Rate Greater Than 89 mL/min (>89); Glucose,Random 135 mg/dL (74-106); Potassium 3.9 meq/L (3.5-5.1); Sodium 143 meq/L (136-145)
[2018-10-29] MEDS ORDERED: Morphine Inj 4 MG/ML Vial IV.PUSH ONE (17:21)
[2018-10-29] MEDS ORDERED: Piperacil/Tazo 3.375 GM Premix 3.375 GM/50 ML PIGGYBACK IV.SIG ONE (17:22)
[2018-10-29] MEDS ORDERED: Bisacodyl 10 MG Supp RECTAL PRN (17:48)
[2018-10-29] MEDS ORDERED: Naloxone Inj 0.4 MG/ML Vial IV.PUSH PRN (17:48)
[2018-10-29] MEDS ORDERED: Acetaminophen 325 MG Tablet PO PRN ×2 (17:48)
[2018-10-29] MEDS: Heparin - SQ 10,000 UNITS/ML Vial SQ SCH (18:07)
--- NOTE | 2018-10-29 18:27 | ED ---
HPI General Chief complaint: Extremity Problem,Nontraumatic Stated complaint: Lt Leg Complaint Time Seen by Provider: 10/29/18 15:42 Source: patient Mode of arrival: ambulatory Limitations: no limitations History of Present Illness HPI Narrative: 52-year-old female who presents to the ED for evaluation of recheck of left leg wound. Per patient she was seen here last week and she was evaluated and have blood work and was started on antibiotics. Per patient she is been compliant with antibiotics and then she received a call 2 days later that she grew Pseudomonas and she need to change antibiotic to Cipro. She is been taking the medication per patient since Sunday. She has been complaining that today she wants to ensure that she was having swelling and redness on the wound that is new. She was not sure if was related to the dressing that she applied to it as it seemed like it was very tight on her. She states that she has no fevers chills or sweats. Per patient is more painful. Denies any urinary or bowel movement issues. States having drainage from the wound but states that is not unusual for her. She does state that she has new drainage that is yellow that she did not had on her previous examination. Per patient she did not had redness before. She states that her pain is 6 out of 10. States compliance with the ciprofloxacin that was prescribed to her after she grew Pseudomonas on her blood culture. Related Data Home Medications Medication Instructions Recorded Confirmed ciprofloxacin HCl 500 mg PO BID 10/29/18 10/29/18 Allergies Allergy/AdvReac Type Severity Reaction Status Date / Time No Known Allergies Allergy Verified 10/29/18 15:41 Review of Systems ROS: all other systems reviewed are negative [facility] Medical History Medical History PVD (peripheral vascular disease) (Acute) Wounds, multiple open, lower extremity (Acute) Surgical History Surgical History History of biopsy (Acute) History of eye surgery (Acute) History of removal of cyst (Acute) Family History Family History Mother Brain cancer Father Diabetes Social History Social History Substance History: No History of Abuse Second Hand Smoke Exposure: No Smoking Status: Never smoker How Often Do You Have a Drink Containing Alcohol: Never Recent Travel in [facility] within the Last 8 Weeks: No Recent Out of Country Travel within the Last 8 Weeks: No Immunization History Tetanus Immunization: Unsure Exam Narrative Exam Narrative: GENERAL: Well appearing. SKIN: Focused skin assessment warm/dry. Patient has erythema noted on the medial aspect of the left leg. She does have ulcer-like lesions that appear to be draining liquid. Patient does appear to have on the medial aspect. erythema and is very warm to touch. 2+ pulses bilaterally total erythematous about 10- 15 cm in length. HEAD: Atraumatic. Normocephalic. EYES: Pupils equal and round. No scleral icterus. No injection or drainage. ENT: No nasal bleeding or discharge. Mucous membranes pink and moist. NECK: Trachea midline. No JVD. CARDIOVASCULAR: Regular rate and rhythm. No murmur appreciated. RESPIRATORY: No accessory muscle use. Clear to auscultation. Breath sounds equal bilaterally. GASTROINTESTINAL: Abdomen soft, non-tender, nondistended. Hepatic and splenic margins not palpable. MUSCULOSKELETAL: No obvious deformities. No clubbing. No cyanosis. No edema. NEUROLOGICAL: Awake and alert. No obvious cranial nerve deficits. Motor grossly within normal limits. Normal speech. PSYCHIATRIC: Appropriate mood and affect; insight and judgment normal. Course Initial Documented Vital Signs Temperature 98.5 F 10/29/18 15:38 Pulse Rate 87 10/29/18 15:38 Respiratory Rate 18 10/29/18 15:38 Blood Pressure 134/70 10/29/18 15:38 Pulse Oximetry 98 10/29/18 15:38 Last Documented Vital Signs Temperature 98.5 F 10/29/18 15:38 Pulse Rate 87 10/29/18 15:38 Respiratory Rate 18 10/29/18 15:38 Blood Pressure 134/70 10/29/18 15:38 Pulse Oximetry 98 10/29/18 15:38 Medical Decision Making MDM Narrative Medical decision making narrative: 52-year-old female who presents to the ED for evaluation of recheck of wound infection. Patient was properly examined was found to have signs and symptoms consistent appears to be failed outpatient treatment and worsening cellulitis. Labs were ordered. Labs do look better than the ones that she had in her first evaluation. I did review the records and she did had positive Pseudomonas which is resistant to certain medications. She was put on ciprofloxacin and the culture did show that the patient could take Levaquin. He did not specifically say anything about ciprofloxacin. Patient's wound does appear to be worse from the description of the previous provider. Patient herself states that he does look worse and more swelling and red but she seems to minimize her symptoms. At this time labs were ordered. She agreed to proceed with this. Patient was on Zosyn and morphine. At this time I recommend admission for further evaluation and treatment as patient clinically has failed outpatient treatment. Patient agrees with this. Case discussed with Dr. Jackson who agrees admission to her service. Medical Screen Exam Complete: Yes Emergency Medical Condition: Yes Medical Records Medical records reviewed: Yes I reviewed the patient's medical records. Lab Data Lab results reviewed: Yes I reviewed the patient's lab results. Result diagrams: 10/29/18 16:29 10/29/18 16:29 Lab Results 10/29/18 10/29/18 Range/Units 16:29 16:29 WBC 5.7 (4.0-11.0) th/mm3 RBC 3.70 L (4.00-5.30) mil/mm3 Hgb 12.2 (11.6-15.3) gm/dL Hct 36.4 (35.0-46.0) % MCV 98.4 (80.0-100.0) fL MCH 33.0 (27.0-34.0) pg MCHC 33.5 (32.0-36.0) % RDW 13.0 (11.6-17.2) % Plt Count 319 (150-450) th/mm3 MPV 6.9 L (7.0-11.0) fL Neut % (Auto) 76.8 H (16.0-70.0) % Lymph % (Auto) 9.7 (9.0-44.0) % [place] % (Auto) 7.0 (0.0-8.0) % Eos % (Auto) 5.7 H (0.0-4.0) % Baso % (Auto) 0.8 (0.0-2.0) % Neut # (Auto) 4.4 (1.8-7.7) th/mm3 Lymph # (Auto) 0.6 L (1.0-4.8) th/mm3 [place] # (Auto) 0.4 (0.0-0.9) th/mm3 Eos # (Auto) 0.3 (0.0-0.4) th/mm3 Baso # (Auto) 0.0 (0.0-0.2) th/mm3 WBC Differential . Differential Comment Auto diff final Sodium 143 (136-145) meq/L Potassium 3.9 (3.5-5.1) meq/L Chloride 109 H (98-107) meq/L Carbon Dioxide 28.9 (21.0-32.0) meq/L Anion Gap 5 (5-15) meq/L BUN 18 (7-18) mg/dL Creatinine 0.68 (0.50-1.00) mg/dL Estimated GFR Greater than 89 (>89) mL/min Random Glucose 135 H (74-106) mg/dL Calcium 8.3 L (8.5-10.1) mg/dL C-Reactive Protein 2.68 H (0.00-0.30) mg/dL Discharge Plan Discharge Disposition Patient Disposition: ED Admit(ED Internal Use Only) Discharge Order Discharge Orders: ED Use Only Admit Order (Routine); Ordered 10/29/18 Ordered By: Danyel Gilman Discharge Details Diagnosis: Wound infection, Failure of outpatient treatment Physicians Team ED Provider: Mundo Connolly ED Midlevel Provider: Danyel Gilman Primary Care Provider: UNKNOWN, Attending Provider: Pauly Jackson Status ED Status: Admitted Observation Patient
--- NOTE | 2018-10-29 18:38 | P.HPIM ---
History of Present Illness Primary Care Physician: UNKNOWN Chief Complaint: Left lower leg redness and swelling History of Present Illness: 52-year-old white female with a history of chronic left lower leg wound who was recently seen here in the emergency room on October 24 and sent home on p.o. Bactrim and Keflex represented back to the emergency room secondary to increased swelling of her left lower leg with increased redness. Apparently, wound culture from the showed Pseudomonas and patient was contacted to change her oral antibiotics to Cipro. She reports she only took 1 day of Cipro when she noted continued increased swelling and worsening redness of her left leg. She is currently being seen by Dr. Summers at the wound care center however per the patient, her physician has been on vacation the past 3 weeks and unable to be seen. She denies any associated chills or fever with these changes in her lower legs. She does report some increased pain in the leg has caused her to not ambulate as much. Of note, patient was admitted back in September 04 for chronic infected left leg wound and at that time was debrided. Since then, she has been following up with wound care center. Diagnosis (1) Wound infection: (2) Failure of outpatient treatment: Review of Systems Constitutional: Reports as per HPI, Denies chills, Denies fever(s) and Denies headache(s) Eyes: Denies blurry vision, Denies change in vision and Denies eye pain Ears, Nose, Mouth, and Throat: Denies abnormal hearing, Denies headache(s), Denies mouth pain, Denies nasal congestion, Denies neck pain and Denies sore throat Cardiovascular: Denies chest pain, Reports edema (Lower leg swelling), Denies palpitations and Denies dyspnea Respiratory: Denies cough and Denies dyspnea Gastrointestinal: Denies abdominal pain, Denies constipation, Denies loose stools, Denies nausea and Denies vomiting Musculoskeletal: Denies back pain, Denies myalgias, Denies arthralgias, Denies neck pain and Denies numbness Skin/Breast: Reports as per HPI, Denies new lesions, Denies rash, Reports skin swelling, Reports skin ulcer and Reports wounds Neurologic: Denies abnormal hearing, Denies headache(s), Denies focal weakness, Denies memory loss and Denies numbness Psychiatric: Denies anxiety, Denies depression and Denies memory loss Endocrine: Denies cold intolerance, Denies heat intolerance and Denies palpitations Hematologic/Lymphatic: Denies easy bleeding and Denies easy bruising [facility] Medical History Medical History PVD (peripheral vascular disease) (Acute) Wounds, multiple open, lower extremity (Chronic) Surgical History Surgical History History of biopsy (Chronic) History of eye surgery (Chronic) History of removal of cyst (Chronic) Family History Family History Mother Brain cancer Father Diabetes Social History Social History Substance History: No History of Abuse Second Hand Smoke Exposure: No Smoking Status: Never smoker How Often Do You Have a Drink Containing Alcohol: Monthly or less Recent Travel in [facility] within the Last 8 Weeks: No Recent Out of Country Travel within the Last 8 Weeks: No Immunization History Tetanus Immunization: Unsure Medications and Allergies Allergies Allergy/AdvReac Type Severity Reaction Status Date / Time No Known Allergies Allergy Verified 10/29/18 15:41 Home Medications Medication Instructions Recorded Confirmed Type ciprofloxacin HCl 500 mg PO BID 10/29/18 10/29/18 History Active Medications: Active Medications Acetaminophen (Tylenol) 650 mg PO Q4H PRN PRN Reason: Temp > 100.4 Acetaminophen (Tylenol) 650 mg PO Q6H PRN PRN Reason: PAIN SCALE 1 TO 2 Hydrocodone Bitart/Acetaminophen (Butler 7.5/325) 1 tab PO Q4H PRN PRN Reason: PAIN SCALE 6 TO 10 Al Hydroxide/Mg Hydroxide (Milk Of Magnesia Liq) 30 ml PO Q12H PRN PRN Reason: Mild Constipation Bisacodyl (Dulcolax Supp) 10 mg RECTAL DAILY PRN PRN Reason: SEVERE CONSITIPATION Heparin Sodium (Porcine) (Heparin Inj) 5,000 units SQ Q12H SOLANGE Last Admin: 10/29/18 18:07 Dose: 5,000 units Lactulose (Lactulose Liq) 30 ml PO DAILY PRN PRN Reason: SEVERE CONSITIPATION Naloxone HCl (Narcan Inj) 0.4 mg IV.PUSH UNSCH PRN PRN Reason: SEE LABEL COMMENTS Ondansetron HCl (Zofran Inj) 4 mg IV.PUSH Q6H PRN PRN Reason: NAUSEA OR VOMITING Senna/Docusate Sodium (Kathe-Colace) 1 tab PO BID SOLANGE Sennosides (Senokot) 17.2 mg PO Q12H PRN PRN Reason: Moderate Constipation Sodium Chloride (Ns Flush) 2 ml IV.FLUSH BID SOLANGE Sodium Chloride (Ns Flush) 2 ml IV.FLUSH PRN PRN PRN Reason: FLUSH AFTER USING IV ACCESS Tramadol HCl (Ultram) 50 mg PO Q4H PRN PRN Reason: PAIN SCALE 3 TO 5 Physical Exam Vital signs: Last Vital Signs Temp 98.5 F 10/29/18 15:38 Pulse 87 10/29/18 15:38 Resp 18 10/29/18 15:38 BP 134/70 10/29/18 15:38 Pulse Ox 98 10/29/18 15:38 Intake & Output 10/27/18 10/28/18 10/29/18 10/30/18 06:59 06:59 06:59 06:59 Weight 47.627 kg Narrative: GENERAL: Well-nourished well-developed white female in no acute distress SKIN: Venous stasis dermatitis chronic changes with left lower extremity swelling and surrounding erythema from superficial open wound in the mid tibial area, mild serous drainage seen. Increased warmth to touch of the left proximal lower leg HEAD: Atraumatic. Normocephalic. EYES: Pupils equal and round. No scleral icterus. No injection or drainage. ENT: No nasal bleeding or discharge. Mucous membranes pink and moist. NECK: Trachea midline. No JVD. CARDIOVASCULAR: Regular rate and rhythm. RESPIRATORY: No accessory muscle use. Clear to auscultation. Breath sounds equal bilaterally. GASTROINTESTINAL: Abdomen soft, non-tender, nondistended. Normoactive bowel sounds MUSCULOSKELETAL: Extremities without clubbing, cyanosis, trace to 1+ edema no obvious deformities. NEUROLOGICAL: Awake and alert to person place time situation. No obvious cranial nerve deficits. Motor grossly within normal limits. Five out of 5 muscle strength in the arms and legs. Normal speech. PSYCHIATRIC: Appropriate mood and affect; insight and judgment normal. Results Labs CBC & Chem 7: 10/29/18 16:29 10/29/18 16:29 Caprini VTE Risk Assessment Caprini VTE Risk Assessment: Moderate/High Risk (score >= 2) Caprini Risk Assessment Model: Point Value = 1 Point Value = 2 Point Value = 3 Point Value = 5 Age 41-60 Minor surgery BMI > 25 kg/m2 Swollen legs Varicose veins or History of unexplained or recurrent spontaneous Oral contraceptives or hormone replacement Sepsis (< 1 month) Serious lung disease, including pneumonia (< 1 month) Abnormal pulmonary function Acute myocardial infarction Congestive heart failure (< 1 month) History of inflammatory bowel disease Medical patient at bed rest Age 61-74 Arthroscopic surgery Major open surgery (> 45 min) Laparoscopic surgery (> 45 min) Malignancy Confined to bed (> 72 hours) Immobilizing plaster cast Central venous access Age >= 75 History of VTE Family history of VTE Factor V Leiden Prothrombin [id number] Lupus anticoagulant Anticardiolipin antibodies Elevated serum homocysteine Heparin-induced thrombocytopenia Other congenital or acquired thrombophilia Stroke (< 1 month) Elective arthroplasty Hip, pelvis, or leg fracture Acute spinal cord injury (< 1 month) Prophylaxis Regimen: Total Risk Factor Score Risk Level Prophylaxis Regimen 0-1 Low Early ambulation 2 Moderate Order ONE of the following: *Sequential Compression Device (SCD) *Heparin 5000 units SQ BID 3-4 Higher Order ONE of the following medications: *Heparin 5000 units SQ TID *Enoxaparin/Lovenox 40 mg SQ daily (WT < 150 kg, CrCl > 30 mL/min) *Enoxaparin/Lovenox 30 mg SQ daily (WT < 150 kg, CrCl > 10-29 mL/min) *Enoxaparin/Lovenox 30 mg SQ BID (WT < 150 kg, CrCl > 30 mL/min) AND/OR *Sequential Compression Device (SCD) 5 or more Highest Order ONE of the following medications: *Heparin 5000 units SQ TID (Preferred with Epidurals) *Enoxaparin/Lovenox 40 mg SQ daily (WT < 150 kg, CrCl > 30 mL/min) *Enoxaparin/Lovenox 30 mg SQ daily (WT < 150 kg, CrCl > 10-29 mL/min) *Enoxaparin/Lovenox 30 mg SQ BID (WT < 150 kg, CrCl > 30 mL/min) AND *Sequential Compression Device (SCD) Assessment and Plan (1) Wound infection: Code(s): T14.8XXA - Other injury of unspecified body region, initial encounter; L08.9 - Local infection of the skin and subcutaneous tissue, unspecified Status: Acute (2) Failure of outpatient treatment: Code(s): Z78.9 - Other specified health status Status: Acute Plan 52-year-old white female with worsening redness and swelling the left lower leg and infected wound represented sensing the emergency room on 10/25 with culture showing Pseudomonas Infected chronic left lower leg wound with Pseudomonas with failed outpatient treatment-admit for IV Zosyn, continue with p.o. Cipro, wound care consult for further evaluation. If patient does not clinically improve consider infectious disease consultation. Due to patient increased pain and decreased activity, will obtain a Doppler ultrasound to rule out DVT. Continue pain control DVT prophylaxisheparin
[2018-10-29] MEDS: Ciprofloxacin 500 MG Tablet PO SCH (21:25)
[2018-10-29] MEDS: Senna/Docusate Sodium 8.6/50 MG Tablet PO SCH (21:28)
[2018-10-30] MEDS: Heparin - SQ 10,000 UNITS/ML Vial SQ SCH ×2 (04:59→20:00)
[2018-10-30] MEDS: Piperacil/Tazo 3.375 GM Premix 3.375 GM/50 ML PIGGYBACK IV.SIG SCH ×2 (05:23→20:00)
[2018-10-30] MEDS: Senna/Docusate Sodium 8.6/50 MG Tablet PO SCH ×2 (10:07→21:43)
[2018-10-30] MEDS: Ciprofloxacin 500 MG Tablet PO SCH ×2 (10:07→21:43)
--- NOTE | 2018-10-30 10:11 | US ---
EXAM DATE: 10/30/2018 10:05 AM EST AGE/SEX: 52 years / Female INDICATIONS: Left leg swelling. CLINICAL DATA: This is the patient's initial encounter. Patient reports that signs and symptoms have been present for 3 weeks and indicates a pain score of 5/10. MEDICAL/SURGICAL HISTORY: Deep venous thrombosis. PVD. Lower extremity open wounds. . Biopsy. Eye surgery. Breast cyst removal. COMPARISON: No prior exams available for comparison. TECHNIQUE: Venous ultrasound of both lower extremities was performed from the inguinal ligament to t he proximal calf. Real-time, color Doppler and spectral tracing, compression and augmentation techni ques were used. FINDINGS: Normal compression of the deep venous system from the inguinal region to the proximal calf . No echogenic clot is seen. Normal response of the venous system to augmentation and respiration. CONCLUSION: 1. The study is negative for lower extremity deep venous thrombosis. Electronically signed by: Edel Wayne MD Board Certified Radiologist 10/30/2018 10:10 AM EST
--- NOTE | 2018-10-30 11:51 | P.PNIM ---
Subjective Interval history: Reports left leg is less swollen and less painful overnight. No fevers or chills. Physical Exam Vital signs: Last Vital Signs Temp 97.7 F 10/30/18 09:31 Pulse 87 10/30/18 09:31 Resp 17 10/30/18 09:31 BP 117/70 10/30/18 09:31 Pulse Ox 98 10/30/18 09:31 Intake & Output 10/28/18 10/29/18 10/30/18 10/31/18 06:59 06:59 06:59 06:59 Intake Total 100 / 100 Balance 100 / 100 Weight 47.627 kg Narrative: GENERAL: Well-nourished well-developed white female in no acute distress SKIN: Venous stasis dermatitis chronic changes with left lower extremity swelling and decreased surrounding erythema from superficial open wound in the mid tibial area, no active drainage seen, nonstick Vaseline gauze to wound. Increased warmth to touch of the left proximal lower leg CARDIOVASCULAR: Regular rate and rhythm. RESPIRATORY: No accessory muscle use. Clear to auscultation. Breath sounds equal bilaterally. GASTROINTESTINAL: Abdomen soft, non-tender, nondistended. Normoactive bowel sounds MUSCULOSKELETAL: Extremities without clubbing, cyanosis, trace to 1+ edema no obvious deformities. NEUROLOGICAL: Awake and alert to person place time situation. PSYCHIATRIC: Appropriate mood and affect; insight and judgment normal. Results Labs CBC & Chem 7: 10/29/18 16:29 10/29/18 16:29 Labs: Microbiology 10/29/18 16:29 Blood - Peripheral Aerobic Blood Culture - Preliminary No growth in 1 day 10/29/18 16:29 Blood - Peripheral Anaerobic Blood Culture - Preliminary No growth in 1 day 10/29/18 16:29 Blood - Peripheral Aerobic Blood Culture - Preliminary No growth in 1 day 10/29/18 16:29 Blood - Peripheral Anaerobic Blood Culture - Preliminary No growth in 1 day 10/29/18 16:29 Abscess - Leg Gram Stain - Final Imaging Imaging: Impressions Venous Doppler Study 10/30/18 00:00 CONCLUSION: 1. The study is negative for lower extremity deep venous thrombosis. Assessment and Plan Plan 52-year-old white female with worsening redness and swelling the left lower leg and infected wound represented sensing the emergency room on 10/25 with culture showing Pseudomonas Infected chronic left lower leg wound with Pseudomonas with failed outpatient treatment-continue IV Zosyn, p.o. Cipro, wound care consult for further evaluation. Patient seems to be clinically improving Due to patient increased pain and decreased activity, await Doppler ultrasound results to rule out DVT. Continue pain control Follow-up with repeat wound cultures. DVT prophylaxisheparin Home in next 24-48 hours if patient continued to clinically improve with final wound cultures. Progress Note: Quality VTE Deep Vein Thrombosis/Pulmonary Embolism Present on Admission: No
--- NOTE | 2018-10-30 11:53 | P.PNIM ---
Subjective Interval history: Reports that left leg swelling and redness has improved. Pain controlled. No fevers or chills overnight Physical Exam Vital signs: Last Vital Signs Temp 97.7 F 10/30/18 09:31 Pulse 87 10/30/18 09:31 Resp 17 10/30/18 09:31 BP 117/70 10/30/18 09:31 Pulse Ox 98 10/30/18 09:31 Intake & Output 10/28/18 10/29/18 10/30/18 10/31/18 06:59 06:59 06:59 06:59 Intake Total 100 / 100 Balance 100 / 100 Weight 47.627 kg Narrative: GENERAL: Well-nourished well-developed white female in no acute distress SKIN: Venous stasis dermatitis chronic changes with left lower extremity swelling and decreased surrounding erythema from superficial open wound in the mid tibial area, no active drainage seen, nonstick Vaseline gauze to wound. Increased warmth to touch of the left proximal lower leg CARDIOVASCULAR: Regular rate and rhythm. RESPIRATORY: No accessory muscle use. Clear to auscultation. Breath sounds equal bilaterally. GASTROINTESTINAL: Abdomen soft, non-tender, nondistended. Normoactive bowel sounds MUSCULOSKELETAL: Extremities without clubbing, cyanosis, trace to 1+ edema no obvious deformities. NEUROLOGICAL: Awake and alert to person place time situation. PSYCHIATRIC: Appropriate mood and affect; insight and judgment normal. Results Labs CBC & Chem 7: 10/29/18 16:29 10/29/18 16:29 Labs: Microbiology 10/29/18 16:29 Blood - Peripheral Aerobic Blood Culture - Preliminary No growth in 1 day 10/29/18 16:29 Blood - Peripheral Anaerobic Blood Culture - Preliminary No growth in 1 day 10/29/18 16:29 Blood - Peripheral Aerobic Blood Culture - Preliminary No growth in 1 day 10/29/18 16:29 Blood - Peripheral Anaerobic Blood Culture - Preliminary No growth in 1 day 10/29/18 16:29 Abscess - Leg Gram Stain - Final Imaging Imaging: Impressions Venous Doppler Study 10/30/18 00:00 CONCLUSION: 1. The study is negative for lower extremity deep venous thrombosis. Assessment and Plan (1) Wound infection: Code(s): T14.8XXA - Other injury of unspecified body region, initial encounter; L08.9 - Local infection of the skin and subcutaneous tissue, unspecified Status: Acute (2) Failure of outpatient treatment: Code(s): Z78.9 - Other specified health status Status: Acute Plan 52-year-old white female with worsening redness and swelling the left lower leg and infected wound represented sensing the emergency room on 10/25 with culture showing Pseudomonas Infected chronic left lower leg wound with Pseudomonas with failed outpatient treatment-continue IV Zosyn, p.o. Cipro, wound care consult for further evaluation. Patient seems to be clinically improving Due to patient increased pain and decreased activity, await Doppler ultrasound results to rule out DVT. Continue pain control Follow-up with repeat wound cultures. DVT prophylaxisheparin Home in next 24-48 hours if patient continued to clinically improve with final wound cultures. Progress Note: Quality VTE Deep Vein Thrombosis/Pulmonary Embolism Present on Admission: No
[2018-10-31] MEDS: Piperacil/Tazo 3.375 GM Premix 3.375 GM/50 ML PIGGYBACK IV.SIG SCH ×2 (05:28→17:33)
[2018-10-31] MEDS: Heparin - SQ 10,000 UNITS/ML Vial SQ SCH (05:28)
[2018-10-31] MEDS: Senna/Docusate Sodium 8.6/50 MG Tablet PO SCH ×2 (09:03→20:35)
[2018-10-31] MEDS: Ciprofloxacin 500 MG Tablet PO SCH ×2 (09:03→20:34)
--- NOTE | 2018-10-31 09:53 | P.PNIM ---
Subjective Interval history: Report left lower leg pain and swelling and redness has improved. No fevers or chills. Wants to go home today. Has appointment with Dr. Summers on November 05. Requests that I help her complete FMLA forms. Physical Exam Vital signs: Last Vital Signs Temp 97.8 F 10/31/18 08:00 Pulse 67 10/31/18 08:00 Resp 18 10/31/18 08:00 BP 104/66 10/31/18 08:00 Pulse Ox 98 10/31/18 08:00 Intake & Output 10/29/18 10/30/18 10/31/18 11/01/18 06:59 06:59 06:59 06:59 Intake Total 100 / 100 100 / 100 Balance 100 / 100 100 / 100 Weight 47.627 kg Narrative: GENERAL: Well-nourished well-developed white female in no acute distress SKIN: Venous stasis dermatitis chronic changes with decrease left lower extremity swelling and less erythema from superficial open wound in the mid tibial area, mild serous drainage seen. Styrofoam gauze to the area. CARDIOVASCULAR: Regular rate and rhythm. RESPIRATORY: No accessory muscle use. Clear to auscultation. Breath sounds equal bilaterally. GASTROINTESTINAL: Abdomen soft, non-tender, nondistended. Normoactive bowel sounds MUSCULOSKELETAL: Extremities without clubbing, cyanosis, trace to 1+ edema no obvious deformities. NEUROLOGICAL: Awake and alert to person place time situation. Motor grossly within normal limits. F Results Labs CBC & Chem 7: 10/29/18 16:29 10/29/18 16:29 Labs: Microbiology 10/29/18 16:29 Abscess - Leg Gram Stain - Final 10/29/18 16:29 Abscess - Leg Wound Culture - Preliminary gram negative rods Group D Enterococcus 10/29/18 16:29 Blood - Peripheral Aerobic Blood Culture - Preliminary No growth in 1 day 10/29/18 16:29 Blood - Peripheral Anaerobic Blood Culture - Preliminary No growth in 1 day 10/29/18 16:29 Blood - Peripheral Aerobic Blood Culture - Preliminary No growth in 1 day 10/29/18 16:29 Blood - Peripheral Anaerobic Blood Culture - Preliminary No growth in 1 day Imaging Imaging: Impressions Venous Doppler Study 10/30/18 00:00 CONCLUSION: 1. The study is negative for lower extremity deep venous thrombosis. Assessment and Plan (1) Wound infection: Code(s): T14.8XXA - Other injury of unspecified body region, initial encounter; L08.9 - Local infection of the skin and subcutaneous tissue, unspecified Status: Acute (2) Failure of outpatient treatment: Code(s): Z78.9 - Other specified health status Status: Acute Plan 52-year-old white female with worsening redness and swelling the left lower leg and infected wound represented sensing the emergency room on 10/25 with culture showing Pseudomonas Infected chronic left lower leg wound with Pseudomonas with failed outpatient treatment-clinically improved on IV Zosyn, continue with p.o. Cipro, wound care consult for further evaluation. Patient has an appointment with Dr. Summers on November 05. Wound cultures with gram-negative rods and enterococcus D, follow- up with final organism and sensitivity. Ultrasound Dopplers negative. Discharge patient to home if final culture and sensitivity available this evening. Condition on discharge: Improved Regular Diet as tolerated Ad Kristine activity Rx written: Cipro 500 p.o. twice daily Additional antibiotics based on wound care results. Follow-up with primary care physician Follow-up with Dr. Summers November 05 Progress Note: Quality VTE Deep Vein Thrombosis/Pulmonary Embolism Present on Admission: No
--- NOTE | 2018-10-31 16:28 | P.PNWCN ---
Wound Care Nurse Consult Description: Received wound management consult for L lower leg from Doctor Jackson. Communicated with: WILLIAM CARROLL and Doctor Jackson Recommendation: 1. Please cleanse open wounds with L lower leg with normal saline or wound cleanser and pat dry. 2. Apply oil emulsion gauze over open wounds. 3 Moisten hydrofera blue left with patient with normal saline and apply cut to fit wounds 4. Apply maxorb II cut to fit over open wounds 5. Cover with ABD pad and secure with rolled gauze, tape and stockinette. 6 . Change dressing weekly or PRN if saturated or dislodged. 7 Please follow up with outpatient wound care center when discharged. Wound/Pressure Injury - Wound Left Anterior Gillespie Wound Assessment: Ongoing Wound Type: Traumatic Wound Is This a Chronic Wound: Yes Requested from Provider a Wound Care Consult: Yes (Patient seen by inpatient wound care nurse ) Length (cm): 2.6 Width (cm): 2.8 Depth (cm): 0.1 (~<0.1cm) Wound Bed Appearance: Atco Wound Bed Appearance: Wound bed presents with 100% pink tissue that is elevated above the skin surface. Surrounding Tissue Appearance: Atco (pink periwound skin with maceration) Surrounding Tissue Temperature: Cool Drainage Description: Serosanguinous Drainage Amount: Scant Drainage Odor: No Odor Dressing Status: Open to Air Left medial gillespie Wound Assessment: Ongoing Wound Type: Traumatic Wound Is This a Chronic Wound: Yes Requested from Provider a Wound Care Consult: Yes Length (cm): 1.9 Width (cm): 2.3 Depth (cm): 0.1 (~0.1cm) Wound Bed Appearance: Atco Wound Bed Appearance: 100% pink tissue that is elevated above the skin surface. Surrounding Tissue Appearance: Atco (with macerated skin) Surrounding Tissue Temperature: Cool Drainage Description: Serosanguinous Drainage Amount: Scant Drainage Odor: No Odor Dressing Status: Open to Air Left medial ankle Wound Assessment: Ongoing Wound Type: Traumatic Wound Is This a Chronic Wound: Yes Requested from Provider a Wound Care Consult: Yes Length (cm): 1.1 Width (cm): 1 Depth (cm): 0.1 (~<0.1cm) Wound Bed Appearance: Atco Wound Bed Appearance: 100% pink tissue. Surrounding Tissue Appearance: Atco (with macerated skin) Surrounding Tissue Temperature: Cool Drainage Description: Serosanguinous Drainage Amount: Scant Drainage Odor: No Odor Dressing Status: Open to Air - Additional Information Patient was seen in F pod for wound management of L lower leg. Patient is noted laying on bed with leg wounds open to air. There are 3 wounds visualized. Wound one is located on anterior L gillespie. Wound two is located on the medial aspect of the L gillespie. Wound three is located on the medial L ankle area. All wounds present with 100% pink tissue that is slightly elevated above the skin. Periwound presents pink skin and maceration. Drainage from wounds is scant and sero-sanguinous. Patient sees Doctor Melina outpatient and was getting dressing changes with hydrofera Blue. Due to maceration recommend to apply maxorb II over hydrofera blue. Explained dressing recommendations to RN Abimbola CARROLL RN to apply dressing as recommended above. All wound description, measurements and wound care recommendations are noted above.
[2018-11-01] MEDS: Piperacil/Tazo 3.375 GM Premix 3.375 GM/50 ML PIGGYBACK IV.SIG SCH ×2 (06:11→18:19)
[2018-11-01] MEDS: Senna/Docusate Sodium 8.6/50 MG Tablet PO SCH ×2 (10:25→22:34)
[2018-11-01] MEDS: Ciprofloxacin 500 MG Tablet PO SCH ×2 (10:25→22:38)
--- NOTE | 2018-11-01 11:48 | P.PNIM ---
Subjective Interval history: Left leg swelling and redness still continues to improve. No fevers or chills. Physical Exam Vital signs: Last Vital Signs Temp 97.9 F 11/01/18 08:00 Pulse 78 11/01/18 08:00 Resp 16 11/01/18 08:00 BP 114/68 11/01/18 08:00 Pulse Ox 97 11/01/18 08:00 Intake & Output 10/30/18 10/31/18 11/01/18 11/02/18 06:59 06:59 06:59 06:59 Intake Total 100 / 100 100 / 100 100 / 100 Balance 100 / 100 100 / 100 100 / 100 Weight 47.627 kg Narrative: Well-nourished well-developed white female no acute distress Cardiovascular regular rate and rhythm Lungs clear to auscultation bilaterally Skin with venous stasis dermatitis chronic changes with continued decreased left lower extremity swelling and less erythema and induration of the lower mid tibial area, no active drainage seen from bandages that was changed by wound care service yesterday. Alert and oriented x4. Results Labs CBC & Chem 7: 10/29/18 16:29 10/29/18 16:29 Labs: Microbiology 10/29/18 16:29 Blood - Peripheral Aerobic Blood Culture - Preliminary No growth in 3 days 10/29/18 16:29 Blood - Peripheral Anaerobic Blood Culture - Preliminary No growth in 3 days 10/29/18 16:29 Blood - Peripheral Aerobic Blood Culture - Preliminary No growth in 3 days 10/29/18 16:29 Blood - Peripheral Anaerobic Blood Culture - Preliminary No growth in 3 days 10/29/18 16:29 Abscess - Leg Gram Stain - Final 10/29/18 16:29 Abscess - Leg Wound Culture - Preliminary Providencia rettgeri Enterococcus gallinarum VRE gram negative rods Assessment and Plan (1) Wound infection: Code(s): T14.8XXA - Other injury of unspecified body region, initial encounter; L08.9 - Local infection of the skin and subcutaneous tissue, unspecified Status: Acute (2) Failure of outpatient treatment: Code(s): Z78.9 - Other specified health status Status: Acute Plan 52-year-old white female with worsening redness and swelling the left lower leg and infected wound represented sensing the emergency room on 10/25 with culture showing Pseudomonas Infected chronic left lower leg wound with Pseudomonas with failed outpatient treatment-clinically improved on IV Zosyn, continue with azalia Dennison, wound care consult for further evaluation. Patient has an appointment with Dr. Summers on November 05. Wound care service recommendations reviewed and discussed with nursing staff Preliminary wound cultures with providencia rettegeri, gram-negative rods and enterococcus gallinarum VRE, follow-up with final organism and sensitivity which lab states will not be ready until tomorrow. Ultrasound Dopplers negative. Hopefully will be able to discharge tomorrow on oral antobiotics with final wound cultures and sensitivity. Progress Note: Quality VTE Deep Vein Thrombosis/Pulmonary Embolism Present on Admission: No
[2018-11-01] MEDS ORDERED: Aluminum/Magnesium/Simethacone Susp 30 ML UDC PO PRN (15:52)
[2018-11-01] MEDS: Famotidine 20 MG Tablet PO SCH ×2 (17:00→22:34)
[2018-11-02] MEDS: Piperacil/Tazo 3.375 GM Premix 3.375 GM/50 ML PIGGYBACK IV.SIG SCH (06:02)
[2018-11-02] MEDS: Ciprofloxacin 500 MG Tablet PO SCH (10:34)
[2018-11-02] MEDS: Senna/Docusate Sodium 8.6/50 MG Tablet PO SCH ×2 (10:34→21:36)
[2018-11-02] MEDS: Famotidine 20 MG Tablet PO SCH ×2 (10:34→21:36)
[2018-11-02] MEDS: Linezolid 600 MG Tablet PO SCH (10:41)
--- NOTE | 2018-11-02 16:13 | P.PNIM ---
Subjective Interval history: Chief Complaint: Left lower leg redness and swelling History of Present Illness: 52-year-old white female with a history of chronic left lower leg wound who was recently seen here in the emergency room on October 24 and sent home on p.o. Bactrim and Keflex represented back to the emergency room secondary to increased swelling of her left lower leg with increased redness. Apparently, wound culture from the showed Pseudomonas and patient was contacted to change her oral antibiotics to Cipro. She reports she only took 1 day of Cipro when she noted continued increased swelling and worsening redness of her left leg. She is currently being seen by Dr. Summers at the wound care center however per the patient, her physician has been on vacation the past 3 weeks and unable to be seen. She denies any associated chills or fever with these changes in her lower legs. She does report some increased pain in the leg has caused her to not ambulate as much. Of note, patient was admitted back in September 04 for chronic infected left leg wound and at that time was debrided. Since then, she has been following up with wound care center. Diagnosis (1) Wound infection: (2) Failure of outpatient treatment: 1-1 Reports left leg is less swollen and less painful overnight. No fevers or chills. 1-2 Reports that left leg swelling and redness has improved. Pain controlled. No fevers or chills overnight 1-3 Report left lower leg pain and swelling and redness has improved. No fevers or chills. Wants to go home today. Has appointment with Dr. Summers on November 05. Requests that I help her complete FMLA forms. 1-4 Left leg swelling and redness still continues to improve. No fevers or chills. 1-5 SENSITIVITIES TO ZYVOX AND LEVAQUIN AT THIS TIME MEDS ADJUSTED HOPEFULLY HOME TOMORROW IF NO REACTION OR WORSE MAY NEED CASE MANAGEMENT FOR HELP WITH OUTPT MEDS AM LABS Physical Exam Vital signs: Vital Signs 11/01/18 16:40 11/01/18 20:00 11/01/18 23:30 Temperature 98.0 F 98.3 F 98.4 F Pulse Rate 76 75 81 Respiratory Rate 24 18 17 Blood Pressure 111/69 109/64 98/58 L Pulse Oximetry 99 96 97 11/02/18 04:00 11/02/18 08:00 11/02/18 12:00 Temperature 97.8 F 97.6 F 97.8 F Pulse Rate 67 65 76 Respiratory Rate 16 24 20 Blood Pressure 121/68 100/56 L 105/55 L Pulse Oximetry 100 100 96 Intake & Output 11/01/18 11/02/18 11/02/18 18:59 06:59 18:59 Intake Total 340 / 340 Balance 340 / 340 Weight 51.9 kg Intake: IV 100 / 100 Zosyn 3.375 GM Premix 3.375 gm 100 / 100 In 50 ml @ 100 mls/hr IV.SIG Q12H SOLANGE Rx#:[id number] Oral 240 / 240 Other: # Voids 1 Date of Last Bowel Movement 10/24/18 11/01/18 10/31/18 # Bowel Movements 0 Narrative: Well-nourished well-developed white female no acute distress Cardiovascular regular rate and rhythm Lungs clear to auscultation bilaterally Skin with venous stasis dermatitis chronic changes with continued decreased left lower extremity swelling and less erythema and induration of the lower mid tibial area, no active drainage seen from bandages that was changed by wound care service yesterday. Alert and oriented x4. Results - Labs CBC & Chem 7: 10/29/18 16:29 10/29/18 16:29 Microbiology 10/29/18 16:29 Blood - Peripheral Aerobic Blood Culture - Preliminary No growth in 4 days 10/29/18 16:29 Blood - Peripheral Anaerobic Blood Culture - Preliminary No growth in 4 days 10/29/18 16:29 Blood - Peripheral Aerobic Blood Culture - Preliminary No growth in 4 days 10/29/18 16:29 Blood - Peripheral Anaerobic Blood Culture - Preliminary No growth in 4 days 10/29/18 16:29 Abscess - Leg Gram Stain - Final 10/29/18 16:29 Abscess - Leg Wound Culture - Final Providencia rettgeri Enterococcus gallinarum VRE Alcaligenes faecalis - Imaging ITS Impressions Venous Doppler Study 10/30/18 00:00 CONCLUSION: 1. The study is negative for lower extremity deep venous thrombosis. Assessment and Plan - Assessment (1) Wound infection Code(s): T14.8XXA - Other injury of unspecified body region, initial encounter; L08.9 - Local infection of the skin and subcutaneous tissue, unspecified Status: Acute (2) Failure of outpatient treatment Code(s): Z78.9 - Other specified health status Status: Acute - Plan 52-year-old white female with worsening redness and swelling the left lower leg and infected wound represented sensing the emergency room on 10/25 with culture showing Pseudomonas Infected chronic left lower leg wound with Pseudomonas with failed outpatient treatment-clinically improved on IV Zosyn, continue with p.o. Cipro, wound care consult for further evaluation. Patient has an appointment with Dr. Summers on November 05. Wound care service recommendations reviewed and discussed with nursing staff Preliminary wound cultures with providencia rettegeri, gram-negative rods and enterococcus gallinarum VRE, follow-up with final organism and sensitivity which lab states will not be ready until tomorrow. Ultrasound Dopplers negative. Hopefully will be able to discharge tomorrow on oral antibiotics SWITCHED TO PO ZYVOX AND PO LEVAQUIN TODAY BASED ON SENSITIVITIES WILL NEED CM FOR HELP WITH MEDS AND FOLLOW UPS DC TO HOME TOMORROW Code Status: FULL CODE Discussed Condition With: RN AND PT Discharge Planning: DC TO HOME TOMORROW ON PO ZYVOX AND PO LEVAQUIN IF NO ISSUES TODAY CM TO HELP WITH MEDICATIONS
[2018-11-02] MEDS ORDERED: levoFLOXacin 750 MG Tablet PO SCH (22:00)
[2018-11-03] MEDS: Linezolid 600 MG Tablet PO SCH ×2 (00:01→10:11)
[2018-11-03 06:54] LABS: Baso # (Auto) 0.1 th/mm3 (0.0-0.2); Eos # (Auto) 0.3 th/mm3 (0.0-0.4); Eos % (Auto) 4.1 % (0.0-4.0); Hematocrit 34.9 % (35.0-46.0); Hemoglobin 11.4 gm/dL (11.6-15.3); Lymph # (Auto) 1.4 th/mm3 (1.0-4.8); Lymph % (Auto) 18.5 % (9.0-44.0); Mean Corpuscular HGB Conc 32.8 % (32.0-36.0); Mean Corpuscular Volume 97.7 fL (80.0-100.0); Mean Platelet Volume 7.2 fL (7.0-11.0); Mono # (Auto) 0.5 th/mm3 (0.0-0.9); Mono % (Auto) 6.8 % (0.0-8.0); Neut # (Auto) 5.2 th/mm3 (1.8-7.7); Neut % (Auto) 69.6 % (16.0-70.0); Platelet Count 351 th/mm3 (150-450); Red Blood Count 3.57 mil/mm3 (4.00-5.30); Red Cell Distribution Width 12.7 % (11.6-17.2); White Blood Count 7.4 th/mm3 (4.0-11.0)
[2018-11-03] MEDS: Senna/Docusate Sodium 8.6/50 MG Tablet PO SCH (08:12)
[2018-11-03] MEDS: Famotidine 20 MG Tablet PO SCH (08:12)
[2018-11-03 09:35] VITALS: RESP 18
[2018-11-03 12:40] LABS: Hemoglobin A1c 5.5 % (4.3-6.0)
[2018-11-03 13:56] VITALS: BP 91/59; PULSE 73; TEMP 97.4; O2SAT 97
--- NOTE | 2018-11-03 15:03 | P.DS ---
DS: Providers Date of admission: 10/29/18 17:54 Primary care physician: UNKNOWN Brief History from admission: 52-year-old white female with a history of chronic left lower leg wound who was recently seen here in the emergency room on October 24 and sent home on p.o. Bactrim and Keflex represented back to the emergency room secondary to increased swelling of her left lower leg with increased redness. Apparently, wound culture from the showed Pseudomonas and patient was contacted to change her oral antibiotics to Cipro. She reports she only took 1 day of Cipro when she noted continued increased swelling and worsening redness of her left leg. She is currently being seen by Dr. Summers at the wound care center however per the patient, her physician has been on vacation the past 3 weeks and unable to be seen. She denies any associated chills or fever with these changes in her lower legs. She does report some increased pain in the leg has caused her to not ambulate as much. Of note, patient was admitted back in September 04 for chronic infected left leg wound and at that time was debrided. Since then, she has been following up with wound care center. DS: Diagnosis Discharge Diagnosis (1) Wound infection: Status: Acute (2) Failure of outpatient treatment: Status: Acute DS: Summary 52-year-old white female with worsening redness and swelling the left lower leg and infected wound represented sensing the emergency room on 10/25 with culture showing Pseudomonas. Wound cultures with providencia rettegeri, gram-negative rods and enterococcus gallinarum VRE. Ultrasound Dopplers negative for any DVT. Patient was given IV Zosyn and patient continued to improve. She has an appointment with wound care clinic within the next 1 week or so. I discussed at length regarding the need for vascular surgery evaluation which can be done in the outpatient setting. Patient will likely have insurance in the near future. The wound culture shows multiple bacteria sensitive to ampicillin and Levaquin. Will discharge patient home on ampicillin and Levaquin for 10 days. Will refer her to vascular surgery for an evaluation. Time Spent with Patient Total time spent providing and/or coordinating discharge services: Less than 30 minutes Quality: VTE Deep Vein Thrombosis/Pulmonary Embolism Present on Admission: No Exam Narrative Exam Narrative: GENERAL: Alert, oriented x3, NAD. SKIN: Warm and dry. HEAD: Normocephalic. EYES: No scleral icterus. No injection or drainage. NECK: Supple, trachea midline. No JVD or lymphadenopathy. CARDIOVASCULAR: Regular rate and rhythm without murmurs, gallops, or rubs. RESPIRATORY: Breath sounds equal bilaterally. No accessory muscle use. GASTROINTESTINAL: Abdomen soft, non-tender, nondistended. MUSCULOSKELETAL: No cyanosis, or edema. Lower extremity infected ulcer wrapped in dressing. No swelling noted. BACK: Nontender without obvious deformity. No CVA tenderness. Results Labs on day of discharge: Labs from last 24 hours 11/03/18 11/03/18 06:13 06:13 WBC 7.4 RBC 3.57 L Hgb 11.4 L Hct 34.9 L MCV 97.7 MCH 32.0 MCHC 32.8 RDW 12.7 Plt Count 351 MPV 7.2 Neut % (Auto) 69.6 Lymph % (Auto) 18.5 Dundy % (Auto) 6.8 Eos % (Auto) 4.1 H Baso % (Auto) 1.0 Neut # (Auto) 5.2 Lymph # (Auto) 1.4 Dundy # (Auto) 0.5 Eos # (Auto) 0.3 Baso # (Auto) 0.1 WBC Differential . Differential Comment Auto diff final Hemoglobin A1c 5.5 Impressions ITS Impressions Venous Doppler Study 10/30/18 00:00 CONCLUSION: 1. The study is negative for lower extremity deep venous thrombosis. Discharge Plan Discharge Disposition Patient Disposition: Discharge Home Discharge Condition Condition: Good Discharge Order Discharge Orders: Discharge Order (Routine); Ordered 11/03/18 Ordered By: Mimi Cuevas Discharge Details Anticipated Discharge Date: 11/03/18 Physicians Team ED Provider: Mundo Connolly ED Midlevel Provider: Danyel Gilman Primary Care Provider: UNKNOWN, Attending Provider: Mimi Cuevas Rxs /Orders / Referrals /Forms Prescriptions: New hydrocodone-acetaminophen 7.5-325 mg Tablet 1 tab PO Q6H PRN (Reason: Pain Scale 6 To 10) Qty: 12 RF: 0 levofloxacin 750 mg Tablet 750 mg PO Q24H Qty: 10 RF: 0 ampicillin 500 mg capsule 500 mg PO Q6H Qty: 40 RF: 0 Discontinued ciprofloxacin HCl 500 mg Tablet 500 mg PO BID RF: 0 Referrals: Divya Summers MD [FAMILY MEDICINE] - See Instructions ( Your appointment has been scheduled for Nov 05 If you cannot make this appointment, please call the office to reschedule ) Sanjeev Landers MD [Physician] - See Instructions (Left lower ext infected ulcer. Please evaluate for any PVD. Thank you. ) Primary Care Irene Rabago [Family Provider] - See Instructions UNKNOWN, [Primary Care Provider] - See Instructions Discharge Instructions Patient Printed Instructions: Ampicillin (By mouth), Hydrocodone/Acetaminophen (By mouth), Levofloxacin (By mouth), Wound Infection (DC) Additional Instructions: may fax [facility] [employer] papers to [id number] Status ED Status: Left Department
== END 2018-11-03 15:45 | disposition home or self-care (01) | DRG 605 ==
LOC: NEDA 15:35 → NEPC 15:35 → OBSVTOIN 17:54 → NEPFCDU 18:40 → N04 11-02 01:27
PROVIDERS: ADMIT Hospitalist; ATTEND Hospitalist
DX: I87.2 Venous insufficiency (chronic) (peripheral); L08.9 Local infection of the skin and subcutaneous tissue, unspecified; I73.9 Peripheral vascular disease, unspecified; B95.2 Enterococcus as the cause of diseases classified elsewhere; S81.802A Unspecified open wound, left lower leg, initial encounter; M79.89 Other specified soft tissue disorders
CPT/HCPCS: 80048; 83036; 85025; 86140; 87040; 87070; 87077; 87186; 87205; 93971; 99285; J1644; J2270; J2405; J2543